=== PATIENT | female | born 1970 | race African-American/Black ===

== ENCOUNTER 2018-10-14 20:02 | Emergency (ER) | payer OTHER ==
[2018-10-14 20:29] VITALS: BP 115/58; PULSE 108; TEMP 99.3; BMI 21.1
[2018-10-14 21:08] LABS: URINE APPEARANCE CLOUDY; URINE BILIRUBIN NEGATIVE (<2.0 mg/dL); URINE COLOR LTYELLOW; URINE GLUCOSE (UA) NEGATIVE (NEGATIVE); URINE KETONE NEGATIVE (NEGATIVE); URINE LEUK ESTERASE 3+ (NEGATIVE); URINE NITRITE POSITIVE (NEGATIVE); URINE PROTEIN 2+ (NEGATIVE); URINE UROBILINOGEN NEGATIVE mg/dL (0.2-1.0)
[2018-10-14 21:18] LABS: BASO % 0.4 % (0-2.0); EOS % 0.8 % (0-4.5); HEMATOCRIT 32.3 % (32.4-45.2); HEMOGLOBIN 11.1 GM/dL (10.7-15.3); LYMPH % 9.9 % (8-40); MCH 28.7 pg (25.7-33.7); MCHC 34.3 g/dl (32.0-36.0); MEAN CELL VOLUME 83.7 fl (80-96); MEAN PLT VOLUME 6.8 fl (7.5-11.1); MONO % 5.7 % (3.8-10.2); NEUT % 83.2 % (42.8-82.8); PLATELET COUNT 314 K/MM3 (134-434); RBC 3.87 M/mm3 (3.60-5.2); RDW 14.9 % (11.6-15.6); WHITE BLOOD COUNT 13.6 K/mm3 (4.0-10.0)
[2018-10-14] MEDS ORDERED: ACETAMINOPHEN INJECTION 100 ML IVPB ONE (21:19)
--- NOTE | 2018-10-14 21:34 | PDOC ---
History of Present Illness - General Chief Complaint: Urinary Problem Stated Complaint: pain Time Seen by Provider: 10/14/18 20:34 History Source: Patient Exam Limitations: No Limitations - History of Present Illness Travel History: No Initial Comments: 10/14/18 22:12 Best Contact: PCP:Dr. Hsu Pmhx:None Pshx: : Anterior cervical discectomy fusion and plating/4 plates and 8 squamous, 2004 left hemithyroidectomy/right partial hemithyroidectomy: 2001 L4- L5 HNP/discectomy: 1996: Bilateral tubal ligation, 1986: Allergies: Penicillin/hives FH:0 Social Hx: Cigarettes/ 0 Alcohol/ 0 Drugs/0 48-year-old female presents to the ER complaining of right sided suprapubic pelvic pressure 2 days which radiates intermittently to the right flank with increased urinary frequency/urgency. Pain is described as 7/10 dull intermittent discomfort. The pain is exacerbated on some movements and alleviated minimally at rest. Patient states subjective fever/chills yesterday without nausea/vomiting, fever/diarrhea, headache, dizziness, lightheadedness, chest pain, shortness of breath, back pains, abdominal pains. Past History - Past Medical History Allergies/Adverse Reactions: Allergies Allergy/AdvReac Type Severity Reaction Status Date / Time Penicillins Allergy Verified 10/14/18 20:29 Home Medications: Ambulatory Orders Acetaminophen W/ Codeine #3 [Tylenol # 3] 1 combo PO Q6H PRN 04/25/12 Cyclobenzaprine HCl [Flexeril] 10 mg PO Q8H 04/25/12 Diazepam [Valium] 5 mg PO BID 04/25/12 Carisoprodol [Soma] 700 mg PO BID 01/21/16 Methylprednisolone [Medrol Dose [place]] 4 mg PO ASDIR #21 tablet 01/21/16 Oxycodone HCl/Acetaminophen [Percocet 5-325 mg Tablet] 1 - 2 tab PO Q6H levoFLOXacin [Levaquin -] 500 mg PO BID #14 tablet 10/14/18 COPD: No CHF: No Hypercholesterolemia: Yes Thyroid Disease: No - Surgical History Orthopedic Surgery: Yes (lower back disc surgery) - Suicide/Smoking/Psychosocial Hx Smoking Status: Yes Smoking History: Never smoked Have you smoked in the past 12 months: No Number of Cigarettes Smoked Daily: 20 Information on smoking cessation initiated: No 'Breaking Loose' booklet given: 01/21/16 Hx Alcohol Use: No Drug/Substance Use Hx: No Substance Use Type: None Review of Systems - Review of Systems Able to Perform ROS?: Yes Comments:: 10/14/18 22:16 CONSTITUTIONAL: Absent: fever, chills, diaphoresis, generalized weakness, malaise, loss of appetite HEENT: Absent: rhinorrhea, nasal congestion, throat pain, throat swelling, difficulty swallowing, mouth swelling, ear pain, eye pain, visual Changes CARDIOVASCULAR: Absent: chest pain, loss of consciousness, palpitations, irregular heart rate, peripheral edema RESPIRATORY: Absent: cough, shortness of breath, dyspnea with exertion, orthopnea, wheezing, stridor, hemoptysis GASTROINTESTINAL: Absent: abdominal pain, abdominal distension, nausea, vomiting, diarrhea, constipation, melena, hematochezia GENITOURINARY: Right flank pain, frequency, urgency Absent: dysuria, hesitancy, hematuria,genital pain MUSCULOSKELETAL: Absent: myalgia, arthralgia, joint swelling SKIN: Absent: rash, itching, pallor HEMATOLOGIC/IMMUNOLOGIC: Absent: easy bleeding, easy bruising, lymphadenopathy, frequent infections ENDOCRINE: Absent: unexplained weight gain, unexplained weight loss, heat intolerance, cold intolerance NEUROLOGIC: Absent: headache, focal weakness or paresthesias, dizziness, unsteady gait, seizure, mental status changes, bladder or bowel incontinence PSYCHIATRIC: Absent: anxiety, depression, suicidal or homicidal ideation, hallucinations. *Physical Exam - Vital Signs Last Vital Signs Temp Pulse Resp BP Pulse Ox 99.3 F 108 H 16 115/58 L 100 10/14/18 20:27 10/14/18 20:27 10/14/18 20:27 10/14/18 20:27 10/14/18 20:27 - Physical Exam Comments: 10/14/18 22:16 GENERAL: Well developed, well nourished. Awake and alert. No acute distress. HEENT: Normocephalic, atraumatic. PERRLA, EOMI. No conjunctival pallor. Sclera are non- icteric. Moist mucous membranes. Oropharynx is clear. NECK: Supple. Full ROM. No JVD. Carotid pulses 2+ and symmetric, without bruits. No thyromegaly. No lymphadenopathy. CARDIOVASCULAR: Regular rate and rhythm. No murmurs, rubs, or gallops. Distal pulses are 2+ and symmetric. PULMONARY: No evidence of respiratory distress. Lungs clear to auscultation bilaterally. No wheezing, rales or rhonchi. ABDOMINAL: Soft. Non-tender. Non-distended. No rebound or guarding. No organomegaly. Normoactive bowel sounds. MUSCULOSKELETAL +Right CVAT Normal range of motion at all joints. No bony deformities or tenderness. EXTREMITIES: No cyanosis. No clubbing. No edema. No calf tenderness. SKIN: Warm and dry. Normal capillary refill. No rashes. No jaundice. NEUROLOGICAL: Alert, awake, appropriate. Cranial nerves 2-12 intact. No deficits to light touch and temperature in face, upper extremities and lower extremities. No motor deficits in the in face, upper extremities and lower extremities. Normoreflexic in the upper and lower extremities. Normal speech. Toes are down- going bilaterally. Gait is normal without ataxia. PSYCHIATRIC: Cooperative. Good eye contact. Appropriate mood and affect. Moderate Sedation - Procedure Monitoring Vital Signs: Procedure Monitoring Vital Signs Temperature 99.3 F 10/14/18 20:27 Pulse Rate 108 H 10/14/18 20:27 Respiratory Rate 16 10/14/18 20:27 Blood Pressure 115/58 L 10/14/18 20:27 O2 Sat by Pulse Oximetry (%) 100 10/14/18 20:27 ED Treatment Course - LABORATORY CBC & Chemistry Diagram: 10/14/18 20:40 10/14/18 20:40 - ADDITIONAL ORDERS Additional order review: Laboratory Results 10/14/18 20:40 Urine Color Ltyellow Urine Appearance Cloudy Urine pH 8.0 D Ur Specific [place] 1.010 Urine Protein 2+ H Urine Glucose (UA) Negative Urine Ketones Negative Urine Blood 1+ H Urine Nitrite Positive Urine Bilirubin Negative Urine Urobilinogen Negative Ur Leukocyte Esterase 3+ H 10/14/18 20:40 RBC 3.87 MCV 83.7 MCHC 34.3 RDW 14.9 MPV 6.8 L Neutrophils % 83.2 H Lymphocytes % 9.9 D Monocytes % 5.7 Eosinophils % 0.8 Basophils % 0.4 - RADIOLOGY Radiograph Interpretation: 10/14/18 22:17 Renal US: *DC/Admit/Observation/Transfer Diagnosis at time of Disposition: UTI (urinary tract infection) Qualifiers: Urinary tract infection type: acute cystitis Hematuria presence: without hematuria Qualified Code(s): N30.00 - Acute cystitis without hematuria - Discharge Dispostion Disposition: HOME - Prescriptions Prescriptions: levoFLOXacin [Levaquin -] 500 mg PO BID #14 tablet - Referrals Referrals: Umer Hsu [Primary Care Provider] - - Patient Instructions - Post Discharge Activity
[2018-10-14 22:22] LABS: ALBUMIN 3.8 g/dl (3.4-5.0); ALK PHOS 70 U/L (45-117); ANION GAP 7 MMOL/L (8-16); BILIRUBIN,TOTAL 0.4 mg/dL (0.2-1); BLOOD UREA NITROGEN 10 mg/dL (7-18); CALCIUM 9.3 mg/dL (8.5-10.1); CHLORIDE 101 mmol/L (98-107); CO2 28 mmol/L (21-32); GLUCOSE,RANDOM 88 mg/dL (74-106); POTASSIUM 4.2 mmol/L (3.5-5.1); SGOT/AST 21 U/L (15-37); SGPT/ALT 21 U/L (13-61); SODIUM 136 mmol/L (136-145); TOT PROT 8.1 g/dl (6.4-8.2)
[2018-10-14 23:26] LABS: EPI CELLS FEW /HPF (FEW); URINE BACTERIA RARE /hpf (NONE SEEN); URINE MUCUS RARE
== END 2018-10-14 23:49 | disposition home or self-care (01) ==
LOC: JER 20:02
DX: N30.00 Acute cystitis without hematuria (principal); B96.89 Other specified bacterial agents as the cause of diseases classified elsewhere; E78.00 Pure hypercholesterolemia, unspecified
CPT/HCPCS: 36415; 76775-TC; 80053; 81003; 81015; 85025; 87086; 87186; 99282-25

== ENCOUNTER 2020-10-12 14:27 | Emergency (ER) | payer OTHER ==
[2020-10-12 14:42] VITALS: BP 123/61; PULSE 74; TEMP 98.1; BMI 21.8
[2020-10-12] MEDS ORDERED: AZITHROMYCIN 500 MG TABLET PO ONE (15:40)
[2020-10-12] MEDS ORDERED: cefTRIAXone SODIUM 1 GM VIAL ONE (16:17)
[2020-10-12] MEDS ORDERED: AZITHROMYCIN 250 MG TABLET ONE (16:22)
== END 2020-10-12 17:04 | disposition home or self-care (01) ==
LOC: JERFT 14:27 → JER 14:27 → JERFT 17:04
DX: Z20.2 Contact with and (suspected) exposure to infections with a predominantly sexual mode of transmission (principal)
CPT/HCPCS: 36415; 87491; 87591; 99284-25

== ENCOUNTER 2020-12-04 19:48 | Inpatient (IN) | payer OTHER ==
[2020-12-04] MEDS ORDERED: LIDOCAINE 5% TOPICAL PATCH TP ONE (21:59)
[2020-12-04] MEDS ORDERED: ACETAMINOPHEN 325 MG TABLET (FP) PO ONE (21:59)
[2020-12-04] MEDS ORDERED: morphine CARPU-JECT 4 MG/1 ML DISP.SYRIN IVPUSH ONE (22:00)
[2020-12-04] MEDS ORDERED: morphine CARPU-JECT 2 MG/1 ML DISP.SYRIN IM ONE (23:01)
[2020-12-04] MEDS ORDERED: ACETAMINOPHEN 325 MG TABLET (FP) ONE (23:04)
[2020-12-04] MEDS ORDERED: LIDOCAINE 5% TOPICAL PATCH ONE (23:05)
[2020-12-04] MEDS ORDERED: MORPHINE SULFATE 2 MG/ML VIAL ONE (23:08)
[2020-12-04] MEDS: LIDOCAINE PATCH REMOVAL MC SCH (23:29)
[2020-12-05 00:03] LABS: BASO % 0.6 % (0-2.0); HEMATOCRIT 35.3 % (32.4-45.2); HEMOGLOBIN 11.7 GM/dL (10.7-15.3); LYMPH % 25.9 % (8-40); MCH 29.2 pg (25.7-33.7); MCHC 33.2 g/dl (32.0-36.0); MEAN CELL VOLUME 87.8 fl (80-96); MEAN PLT VOLUME 6.1 fl (7.5-11.1); MONO % 6.2 % (3.8-10.2); NEUT % 65.3 % (42.8-82.8); PLATELET COUNT 413 K/MM3 (134-434); RBC 4.02 M/mm3 (3.60-5.2); RDW 14.9 % (11.6-15.6); WHITE BLOOD COUNT 9.6 K/mm3 (4.0-10.0)
[2020-12-05 00:46] LABS: CHLORIDE 107 mmol/L (98-107); POTASSIUM 3.8 mmol/L (3.5-5.1); SODIUM 144 mmol/L (136-145)
[2020-12-05 00:51] LABS: ANION GAP 8 MMOL/L (8-16); BLOOD UREA NITROGEN 11.8 mg/dL (7-18); CO2 29 mmol/L (21-32)
[2020-12-05 00:52] LABS: CALCIUM 9.9 mg/dL (8.5-10.1); GLUCOSE,RANDOM 96 mg/dL (74-106)
[2020-12-05 00:54] LABS: SGPT/ALT 25 U/L (13-61)
[2020-12-05 00:55] LABS: SGOT/AST 19 U/L (15-37)
[2020-12-05 00:56] LABS: BILIRUBIN,TOTAL 1.1 mg/dL (0.2-1)
[2020-12-05 00:57] LABS: ALK PHOS 96 U/L (45-117)
[2020-12-05] MEDS ORDERED: morphine CARPU-JECT 4 MG/1 ML DISP.SYRIN IVPUSH ONE (05:41)
[2020-12-05] MEDS ORDERED: ACETAMINOPHEN 325 MG TABLET (FP) PO ONE (05:41)
[2020-12-05] MEDS ORDERED: ACETAMINOPHEN 325 MG TABLET (FP) ONE (05:44)
[2020-12-05] MEDS ORDERED: morphine SULFATE 4 MG/ML VIAL ONE (05:45)
[2020-12-05] MEDS ORDERED: ZOLPIDEM TARTRATE 5 MG TABLET PO PRN (09:36)
[2020-12-05] MEDS ORDERED: ACETAMINOPHEN 500 MG TABLET (FP) PO PRN (09:41)
[2020-12-05] MEDS ORDERED: VENLAFAXINE HCL 150 MG E.R. CAPSULE PO SCH (10:00)
[2020-12-05 11:56] VITALS: BMI 23.3
[2020-12-05] MEDS: PANTOPRAZOLE 20 MG TABLET PO SCH (14:06)
[2020-12-05] MEDS: MULTIVITAMINS (DAILY MVI) TABLET (FP) PO SCH (14:06)
[2020-12-05] MEDS: VENLAFAXINE HCL 75 MG E.R. CAPSULES PO SCH (14:06)
[2020-12-05] MEDS: CHOLECALCIFEROL (VIT D3) 1,000 UNIT (25 MCG) TABLET PO SCH (14:07)
[2020-12-05] MEDS ORDERED: PT OWN MED DRAWER 7, Y5N ONE (16:19)
[2020-12-05] MEDS: BICTEGRAV/EMTRICIT/TENOFOV (BIKTARVY) 50-200-25 MG TABLET PO SCH (16:24)
[2020-12-05] MEDS: OLANZapine 2.5 MG TABLET PO SCH (16:24)
[2020-12-05] MEDS: CYCLOBENZAPRINE HCL 10 MG TABLET (FP) PO PRN (16:30)
[2020-12-05] MEDS: IBUPROFEN 600 MG TABLET (FP) PO PRN (16:31)
[2020-12-05] MEDS: ATORVASTATIN CA 10 MG TABLET (FP) PO SCH (21:21)
[2020-12-05] MEDS: LIDOCAINE PATCH REMOVAL MC SCH (21:23)
[2020-12-06] MEDS ORDERED: PT OWN MED DRAWER 7, Y5N ONE ×2 (09:42→10:30)
[2020-12-06 09:45] LABS: BASO % 0.7 % (0-2.0); EOS % 5.1 % (0-4.5); HEMATOCRIT 35.5 % (32.4-45.2); HEMOGLOBIN 11.8 GM/dL (10.7-15.3); LYMPH % 30.1 % (8-40); MCH 29.2 pg (25.7-33.7); MCHC 33.1 g/dl (32.0-36.0); MEAN CELL VOLUME 88.3 fl (80-96); MEAN PLT VOLUME 6.7 fl (7.5-11.1); MONO % 5.3 % (3.8-10.2); NEUT % 58.8 % (42.8-82.8); PLATELET COUNT 407 K/MM3 (134-434); RBC 4.02 M/mm3 (3.60-5.2); RDW 15.3 % (11.6-15.6); WHITE BLOOD COUNT 6.6 K/mm3 (4.0-10.0)
[2020-12-06 10:09] LABS: POTASSIUM 3.9 mmol/L (3.5-5.1)
[2020-12-06 10:20] LABS: CALCIUM 9.3 mg/dL (8.5-10.1)
[2020-12-06] MEDS: BICTEGRAV/EMTRICIT/TENOFOV (BIKTARVY) 50-200-25 MG TABLET PO SCH (10:20)
[2020-12-06] MEDS: VENLAFAXINE HCL 75 MG E.R. CAPSULES PO SCH (10:20)
[2020-12-06 10:21] LABS: ALBUMIN 3.5 g/dl (3.4-5.0); BLOOD UREA NITROGEN 13.3 mg/dL (7-18); MAGNESIUM 2.1 mg/dL (1.8-2.4)
[2020-12-06] MEDS: ENOXAPARIN NA (PORCINE) 40 MG/0.4 ML DISP.SYRIN SQ SCH (10:21)
[2020-12-06 10:22] LABS: PHOSPHOROUS 4.1 mg/dL (2.5-4.9)
[2020-12-06] MEDS: PANTOPRAZOLE 20 MG TABLET PO SCH (10:22)
[2020-12-06] MEDS: MULTIVITAMINS (DAILY MVI) TABLET (FP) PO SCH (10:22)
[2020-12-06 10:23] LABS: BILIRUBIN,TOTAL 0.4 mg/dL (0.2-1); TOT PROT 7.5 g/dl (6.4-8.2)
[2020-12-06] MEDS: CHOLECALCIFEROL (VIT D3) 1,000 UNIT (25 MCG) TABLET PO SCH (10:23)
[2020-12-06] MEDS: OLANZapine 2.5 MG TABLET PO SCH (10:24)
[2020-12-06] MEDS: IBUPROFEN 600 MG TABLET (FP) PO PRN (18:43)
[2020-12-06] MEDS: LIDOCAINE PATCH REMOVAL MC SCH (21:25)
[2020-12-06] MEDS: ATORVASTATIN CA 10 MG TABLET (FP) PO SCH (21:25)
[2020-12-07] MEDS ORDERED: PT OWN MED DRAWER 7, Y5N ONE (09:32)
[2020-12-07] MEDS: ENOXAPARIN NA (PORCINE) 40 MG/0.4 ML DISP.SYRIN SQ SCH (09:48)
[2020-12-07] MEDS: PANTOPRAZOLE 20 MG TABLET PO SCH (09:48)
[2020-12-07] MEDS: OLANZapine 2.5 MG TABLET PO SCH (09:48)
[2020-12-07] MEDS: BICTEGRAV/EMTRICIT/TENOFOV (BIKTARVY) 50-200-25 MG TABLET PO SCH (09:48)
[2020-12-07] MEDS: VENLAFAXINE HCL 75 MG E.R. CAPSULES PO SCH (09:48)
[2020-12-07] MEDS: CHOLECALCIFEROL (VIT D3) 1,000 UNIT (25 MCG) TABLET PO SCH (09:48)
[2020-12-07] MEDS: MULTIVITAMINS (DAILY MVI) TABLET (FP) PO SCH (09:48)
[2020-12-07] MEDS: IBUPROFEN 600 MG TABLET (FP) PO PRN ×2 (11:22→21:40)
[2020-12-07] MEDS: CYCLOBENZAPRINE HCL 10 MG TABLET (FP) PO PRN (11:23)
[2020-12-07] MEDS: LIDOCAINE PATCH REMOVAL MC SCH (21:41)
[2020-12-07] MEDS: ATORVASTATIN CA 10 MG TABLET (FP) PO SCH (21:41)
[2020-12-07] MEDS: ZOLPIDEM TARTRATE 5 MG TABLET PO PRN (21:41)
[2020-12-08] MEDS ORDERED: PT OWN MED DRAWER 7, Y5N ONE ×2 (09:30→10:57)
[2020-12-08] MEDS: VENLAFAXINE HCL 75 MG E.R. CAPSULES PO SCH (09:37)
[2020-12-08] MEDS: MULTIVITAMINS (DAILY MVI) TABLET (FP) PO SCH (09:37)
[2020-12-08] MEDS: PANTOPRAZOLE 20 MG TABLET PO SCH (09:37)
[2020-12-08] MEDS: BICTEGRAV/EMTRICIT/TENOFOV (BIKTARVY) 50-200-25 MG TABLET PO SCH (09:38)
[2020-12-08] MEDS: OLANZapine 2.5 MG TABLET PO SCH (09:38)
[2020-12-08] MEDS: CHOLECALCIFEROL (VIT D3) 1,000 UNIT (25 MCG) TABLET PO SCH (09:38)
[2020-12-08] MEDS: ENOXAPARIN NA (PORCINE) 40 MG/0.4 ML DISP.SYRIN SQ SCH (09:43)
[2020-12-08] MEDS: IBUPROFEN 600 MG TABLET (FP) PO PRN (11:19)
[2020-12-08 19:25] LABS: INR 1.14 (0.83-1.09); PROTHROMBIN TIME (PATIENT) 13.7 SEC (9.7-13.0)
[2020-12-08] MEDS: CYCLOBENZAPRINE HCL 10 MG TABLET (FP) PO PRN (21:23)
[2020-12-08] MEDS: ATORVASTATIN CA 10 MG TABLET (FP) PO SCH (21:23)
[2020-12-08] MEDS: ZOLPIDEM TARTRATE 5 MG TABLET PO PRN (21:24)
[2020-12-08] MEDS: LIDOCAINE PATCH REMOVAL MC SCH (21:24)
[2020-12-08] MEDS ORDERED: CHLORHEXIDINE GLUCONATE 4% CLEANSER FOR DECOLONIZATION TP SCH (22:00)
[2020-12-08] MEDS ORDERED: LIDOCAINE 5% TOPICAL PATCH TP ONE (22:00)
[2020-12-09] MEDS ORDERED: MIDAZOLAM HCL 2 MG/2 ML SINGLE DOSE VIAL ONE (08:06)
[2020-12-09] MEDS ORDERED: MORPHINE 5 MG/10 ML AMP - FOR COMPOUNDING USE ONLY ONE (08:06)
[2020-12-09] MEDS ORDERED: PROPOFOL 20 ML ONE (08:06)
[2020-12-09] MEDS ORDERED: fentaNYL CITRATE 250 MCG/5 ML VIAL ONE ×2 (08:07)
[2020-12-09] MEDS ORDERED: ROCURONIUM BROMIDE 50 MG/5 ML SYRINGE ONE ×3 (08:07→10:48)
[2020-12-09] MEDS ORDERED: ceFAZolin SODIUM 1 GM VIAL IVPB ONE (08:35)
[2020-12-09] MEDS ORDERED: VANCOMYCIN 1,000 MG VIAL (RESTRICTED TO ID ONLY) IVPB ONE (08:48)
[2020-12-09] MEDS ORDERED: KETOROLAC TROMETHAMINE 30 MG/1 ML VIAL ONE (08:57)
[2020-12-09] MEDS ORDERED: ONDANSETRON 4 MG/2 ML VIAL ONE (08:57)
[2020-12-09] MEDS ORDERED: VANCOMYCIN 1,000 MG VIAL (RESTRICTED TO ID ONLY) ONE (08:57)
[2020-12-09] MEDS ORDERED: ceFAZolin SODIUM 1 GM VIAL ONE ×3 (08:57→18:55)
[2020-12-09] MEDS ORDERED: DEXAMETHASONE SOD PHOSPHATE 4 MG/1 ML VIAL ONE (08:57)
[2020-12-09] MEDS ORDERED: LIDOCAINE 1%/EPI 1:100000 (20 ML MULTI DOSE VIAL) IJ ONE (09:15)
[2020-12-09] MEDS ORDERED: BUPIVACAINE HCL 100 ML ONE (09:23)
[2020-12-09] MEDS ORDERED: BACITRACIN 50,000 UNITS VIAL TP ONE (09:39)
[2020-12-09] MEDS ORDERED: GENTAMICIN SO4 80 MG/2 ML VIAL IVPB ONE (09:40)
[2020-12-09] MEDS ORDERED: THROMBIN (BOVINE) 5,000 UNIT VIAL TP ONE (09:52)
[2020-12-09] MEDS ORDERED: HYDROGEN PEROXIDE 473 ML PO ONE (09:54)
[2020-12-09] MEDS ORDERED: BUPIVACAINE HCL/PF 0.5% (5 MG/ML) 30 ML VIAL IJ ONE (09:55)
[2020-12-09] MEDS ORDERED: BUPIVACAINE LIPOSOME/PF (EXPAREL) 266 MG/20 ML VIAL NR ONE (09:56)
[2020-12-09] MEDS ORDERED: LIDOCAINE PATCH REMOVAL MC SCH (10:00)
[2020-12-09] MEDS ORDERED: BUPIVACAINE LIPOSOME/PF (EXPAREL) 266 MG/20 ML VIAL ONE (10:33)
[2020-12-09] MEDS ORDERED: NEOSTIGMINE METHYLSULFATE 0.5 MG/1 ML - 10 ML MDV ONE (11:10)
[2020-12-09] MEDS ORDERED: GLYCOPYRROLATE 0.2 MG/1 ML VIAL ONE ×2 (11:10)
[2020-12-09] MEDS ORDERED: ONDANSETRON 4 MG/2 ML VIAL IVPUSH PRN ×2 (11:50)
[2020-12-09] MEDS ORDERED: PROMETHAZINE HCL 25 MG/1 ML VIAL IVPUSH PRN (11:50)
[2020-12-09] MEDS ORDERED: diphenhydrAMINE HCL 25 MG CAPSULE (FP) PO PRN (11:50)
[2020-12-09] MEDS ORDERED: NALOXONE HCL 0.4 MG/ML VIAL IVPUSH PRN (11:52)
[2020-12-09] MEDS ORDERED: HEPARIN NA (PORCINE) 5,000 UNITS/ML 1ML VIAL SQ SCH (12:00)
[2020-12-09] MEDS ORDERED: LACTATED RINGERS SOLUTION 1,000 ML/1,000 ML INFUS.BAG IV SCH (12:00)
[2020-12-09] MEDS ORDERED: CYCLOBENZAPRINE HCL 10 MG TABLET (FP) PO PRN (12:47)
[2020-12-09] MEDS ORDERED: CEFAZOLIN 1 GM/D5W 1 GM/50 ML BAG IVPB SCH (18:00)
[2020-12-09] MEDS: ACETAMINOPHEN 325 MG TABLET (FP) PO SCH (18:45)
[2020-12-09] MEDS ORDERED: DEXTROSE 5%-WATER - 50 ML IVPB ONE (18:55)
[2020-12-09] MEDS: ATORVASTATIN CA 10 MG TABLET (FP) PO SCH (21:24)
[2020-12-09] MEDS: DOCUSATE SODIUM 100 MG CAPSULE (FP) PO SCH (21:24)
[2020-12-09] MEDS ORDERED: CHLORHEXIDINE GLUCONATE 4% CLEANSER FOR DECOLONIZATION TP SCH (22:00)
[2020-12-09] MEDS: ZOLPIDEM TARTRATE 5 MG TABLET PO PRN (22:17)
[2020-12-10] MEDS: ACETAMINOPHEN 325 MG TABLET (FP) PO SCH ×5 (00:29→23:16)
[2020-12-10] MEDS ORDERED: DEXTROSE 5%-WATER - 50 ML IVPB ONE ×2 (04:21→09:33)
[2020-12-10] MEDS ORDERED: ceFAZolin SODIUM 1 GM VIAL ONE ×2 (04:21→09:32)
[2020-12-10] MEDS: CEFAZOLIN 1 GM in DEXTROSE 5%-WATER - 1 GM/50 ML IVPB IVPB SCH ×2 (04:23→09:42)
[2020-12-10] MEDS: DOCUSATE SODIUM 100 MG CAPSULE (FP) PO SCH ×3 (06:14→21:28)
[2020-12-10 08:51] LABS: HEMATOCRIT 28.3 % (32.4-45.2); HEMOGLOBIN 9.5 GM/dL (10.7-15.3); MCH 29.5 pg (25.7-33.7); MCHC 33.5 g/dl (32.0-36.0); MEAN PLT VOLUME 7.1 fl (7.5-11.1); PLATELET COUNT 328 K/MM3 (134-434); RBC 3.22 M/mm3 (3.60-5.2); RDW 14.9 % (11.6-15.6); WHITE BLOOD COUNT 9.2 K/mm3 (4.0-10.0)
[2020-12-10] MEDS ORDERED: oxyCODONE HCL 5 MG TABLET PO PRN ×2 (09:00)
[2020-12-10 09:17] LABS: POTASSIUM 3.8 mmol/L (3.5-5.1)
[2020-12-10] MEDS ORDERED: LACTATED RINGERS SOLUTION 1,000 ML/1,000 ML INFUS.BAG IV SCH (09:18)
[2020-12-10] MEDS ORDERED: PT OWN MED DRAWER 7, Y5N ONE (09:18)
[2020-12-10] MEDS: PANTOPRAZOLE 20 MG TABLET PO SCH (09:27)
[2020-12-10] MEDS: MULTIVITAMINS (DAILY MVI) TABLET (FP) PO SCH (09:27)
[2020-12-10] MEDS: FERROUS SO4 325 MG TABLET (FP) PO SCH (09:27)
[2020-12-10] MEDS: FOLIC ACID 1 MG TABLET (FP) PO SCH (09:27)
[2020-12-10] MEDS: CHOLECALCIFEROL (VIT D3) 1,000 UNIT (25 MCG) TABLET PO SCH (09:28)
[2020-12-10] MEDS: VENLAFAXINE HCL 75 MG E.R. CAPSULES PO SCH (09:28)
[2020-12-10] MEDS: OLANZapine 2.5 MG TABLET PO SCH (09:28)
[2020-12-10] MEDS: BICTEGRAV/EMTRICIT/TENOFOV (BIKTARVY) 50-200-25 MG TABLET PO SCH (09:29)
[2020-12-10 09:38] LABS: CREATININE 0.8 mg/dL (0.55-1.3)
[2020-12-10] MEDS ORDERED: ENOXAPARIN NA (PORCINE) 40 MG/0.4 ML DISP.SYRIN SQ SCH (10:00)
[2020-12-10] MEDS: oxyCODONE HCL 10 MG SUSTAINED ACTING TABLET PO SCH ×2 (12:00→21:28)
[2020-12-10] MEDS: SENNOSIDES 8.6MG TABLET (FP) PO SCH ×2 (14:54→21:29)
[2020-12-10] MEDS: ATORVASTATIN CA 10 MG TABLET (FP) PO SCH (21:28)
[2020-12-10] MEDS: ZOLPIDEM TARTRATE 5 MG TABLET PO PRN (23:17)
[2020-12-11] MEDS: ACETAMINOPHEN 325 MG TABLET (FP) PO SCH (07:00)
[2020-12-11] MEDS: DOCUSATE SODIUM 100 MG CAPSULE (FP) PO SCH (07:01)
[2020-12-11] MEDS: oxyCODONE HCL 10 MG SUSTAINED ACTING TABLET PO SCH (10:11)
[2020-12-11] MEDS: VENLAFAXINE HCL 75 MG E.R. CAPSULES PO SCH (10:13)
[2020-12-11] MEDS: SENNOSIDES 8.6MG TABLET (FP) PO SCH (10:14)
[2020-12-11] MEDS: MULTIVITAMINS (DAILY MVI) TABLET (FP) PO SCH (10:14)
[2020-12-11] MEDS: PANTOPRAZOLE 20 MG TABLET PO SCH (10:14)
[2020-12-11] MEDS: FERROUS SO4 325 MG TABLET (FP) PO SCH (10:14)
[2020-12-11] MEDS: BICTEGRAV/EMTRICIT/TENOFOV (BIKTARVY) 50-200-25 MG TABLET PO SCH (10:15)
[2020-12-11] MEDS: FOLIC ACID 1 MG TABLET (FP) PO SCH (10:16)
[2020-12-11] MEDS: OLANZapine 2.5 MG TABLET PO SCH (10:16)
[2020-12-11] MEDS: CHOLECALCIFEROL (VIT D3) 1,000 UNIT (25 MCG) TABLET PO SCH (10:16)
[2020-12-11 13:30] VITALS: PULSE 58; TEMP 97.8
[2020-12-11 13:32] VITALS: BP 103/63
== END 2020-12-11 15:01 | disposition home health service (06) | DRG 304 ==
LOC: JER 19:48 → JERBED 12-05 05:49 → J6S 12-05 10:30 → J4W 12-09 17:27
PROVIDERS: ADMIT Internal Medicine; ATTEND Family Medicine
PROC: 0SG0071 Fusion of Lumbar Vertebral Joint with Autologous Tissue Substitute, Posterior Approach, Posterior Column, Open Approach (ICD-10-PCS; 2020-12-09)
PROC: 01NB0ZZ Release Lumbar Nerve, Open Approach (ICD-10-PCS; 2020-12-09)
PROC: 0JX70ZZ Transfer Back Subcutaneous Tissue and Fascia, Open Approach (ICD-10-PCS; 2020-12-09)
PROC: 00QT0ZZ Repair Spinal Meninges, Open Approach (ICD-10-PCS; 2020-12-09)
PROC: 0SB20ZZ Excision of Lumbar Vertebral Disc, Open Approach (ICD-10-PCS; 2020-12-09)
PROC: 00BY0ZZ Excision of Lumbar Spinal Cord, Open Approach (ICD-10-PCS; 2020-12-09)
PROC: B01BZZZ Fluoroscopy of Spinal Cord (ICD-10-PCS; 2020-12-09)
PROC: 4A11X4G Monitoring of Peripheral Nervous Electrical Activity, Intraoperative, External Approach (ICD-10-PCS; 2020-12-09)
PROC: 0SG00AJ Fusion of Lumbar Vertebral Joint with Interbody Fusion Device, Posterior Approach, Anterior Column, Open Approach (ICD-10-PCS; principal; 2020-12-09 08:00)
DX: M47.26 Other spondylosis with radiculopathy, lumbar region (principal); E78.00 Pure hypercholesterolemia, unspecified; M54.5 Low back pain; F17.210 Nicotine dependence, cigarettes, uncomplicated; K82.8 Other specified diseases of gallbladder; R70.0 Elevated erythrocyte sedimentation rate; Z21 Asymptomatic human immunodeficiency virus [HIV] infection status; N28.1 Cyst of kidney, acquired; R26.81 Unsteadiness on feet; G96.191 Perineural cyst; M48.061 Spinal stenosis, lumbar region without neurogenic claudication; G96.198 Other disorders of meninges, not elsewhere classified; G96.11 Dural tear
CPT/HCPCS: 36415; 72125-TC; 72128-TC; 72131-TC; 72158-TC; 73523-TC-FY; 73552-TC-RT-FY; 74177-TC; 76000-TC-FY; 80048; 80053; 83735; 84100; 84436; 84443; 84481; 84703; 85025; 85027; 85610; 85651; 86140; 86359; 86360; 86850; 86900; 86901; 87040; 87070; 87075; 87205; 88304-TC; 93005; 93010; 93971-TC; 94760; 97116-GP; 97162-GP; 99285-25; A9579; C9803; Q9967; U0003

== ENCOUNTER 2020-12-15 14:03 | Inpatient (IN) | payer OTHER ==
[2020-12-15 17:03] LABS: BASO % 0.6 % (0-2.0); EOS % 4.2 % (0-4.5); HEMATOCRIT 29.1 % (32.4-45.2); HEMOGLOBIN 9.9 GM/dL (10.7-15.3); LYMPH % 24.8 % (8-40); MCH 29.6 pg (25.7-33.7); MEAN CELL VOLUME 86.9 fl (80-96); MEAN PLT VOLUME 6.7 fl (7.5-11.1); MONO % 8.6 % (3.8-10.2); NEUT % 61.8 % (42.8-82.8); PLATELET COUNT 494 K/MM3 (134-434); RBC 3.35 M/mm3 (3.60-5.2); RDW 14.7 % (11.6-15.6); WHITE BLOOD COUNT 8.8 K/mm3 (4.0-10.0)
[2020-12-15 17:12] LABS: INR 1.22 (0.83-1.09); PROTHROMBIN TIME (PATIENT) 14.7 SEC (9.7-13.0)
[2020-12-15 17:15] LABS: ACTIVATED PTT 33.5 SECONDS (25.2-36.5)
[2020-12-15 17:18] LABS: POTASSIUM 3.8 mmol/L (3.5-5.1)
[2020-12-15 17:21] LABS: ALBUMIN 3.2 g/dl (3.4-5.0); BLOOD UREA NITROGEN 12.4 mg/dL (7-18)
[2020-12-15 17:24] LABS: CREATININE 0.8 mg/dL (0.55-1.3)
[2020-12-15 17:25] LABS: BILIRUBIN,TOTAL 0.3 mg/dL (0.2-1); TOT PROT 7.7 g/dl (6.4-8.2)
[2020-12-15] MEDS ORDERED: ACETAMINOPHEN 325 MG TABLET (FP) PO PRN (23:36)
[2020-12-16] MEDS ORDERED: oxyCODONE HCL 5 MG TABLET ONE (01:52)
[2020-12-16] MEDS: oxyCODONE HCL 5 MG TABLET PO PRN (02:02)
[2020-12-16] MEDS ORDERED: oxyCODONE HCL 10 MG SUSTAINED ACTING TABLET ONE (07:59)
[2020-12-16] MEDS ORDERED: FERROUS SO4 325 MG TABLET (FP) ONE (07:59)
[2020-12-16] MEDS ORDERED: ALBUTEROL SO4 HFA INHALER IH ONE (07:59)
[2020-12-16] MEDS ORDERED: PANTOPRAZOLE 20 MG TABLET PO ONE (07:59)
[2020-12-16] MEDS ORDERED: FOLIC ACID 1 MG TABLET (FP) ONE (07:59)
[2020-12-16] MEDS ORDERED: CHOLECALCIFEROL (VIT D3) 1,000 UNIT (25 MCG) TABLET ONE (07:59)
[2020-12-16] MEDS ORDERED: PATIENT'S OWN MEDICATION (NON-FORMULARY) (Bictegrav/Emtricit/Tenofov Ala 1 EACH Tablet) PO SCH (10:00)
[2020-12-16] MEDS: FOLIC ACID 1 MG TABLET (FP) PO SCH (10:48)
[2020-12-16] MEDS: VENLAFAXINE HCL 150 MG E.R. CAPSULE PO SCH (10:48)
[2020-12-16] MEDS: FERROUS SO4 325 MG TABLET (FP) PO SCH (10:48)
[2020-12-16] MEDS: oxyCODONE HCL 10 MG SUSTAINED ACTING TABLET PO SCH ×2 (10:49→21:34)
[2020-12-16] MEDS: CHOLECALCIFEROL (VIT D3) 1,000 UNIT (25 MCG) TABLET PO SCH (10:50)
[2020-12-16] MEDS: ALBUTEROL SO4 HFA INHALER IH SCH ×4 (10:50→23:40)
[2020-12-16] MEDS: PANTOPRAZOLE 20 MG TABLET PO SCH (10:50)
[2020-12-16] MEDS: OLANZapine 2.5 MG TABLET PO SCH (10:50)
[2020-12-16] MEDS: BICTEGRAV/EMTRICIT/TENOFOV (BIKTARVY) 50-200-25 MG TABLET PO SCH (13:23)
[2020-12-16 13:36] VITALS: BMI 21.1
[2020-12-16] MEDS ORDERED: CEFTRIAXONE 2 GM in DEXTROSE 5%-WATER 2 GM/100 ML BAG IVPB SCH (14:45)
[2020-12-16] MEDS ORDERED: DEXTROSE 5%-WATER 100 ML IVPB ONE (16:02)
[2020-12-16] MEDS: ENOXAPARIN NA (PORCINE) 40 MG/0.4 ML DISP.SYRIN SQ SCH (17:57)
[2020-12-16] MEDS: VANCOMYCIN 1 GRAM (PRE-DOCKED) 1,000 MG/250 ML BAG IVPB SCH (17:58)
[2020-12-16] MEDS: SENNOSIDES 8.6MG TABLET (FP) PO SCH (21:34)
[2020-12-16] MEDS: ATORVASTATIN CA 10 MG TABLET (FP) PO SCH (21:34)
[2020-12-16] MEDS: DOCUSATE SODIUM 100 MG CAPSULE (FP) PO SCH (21:34)
[2020-12-16] MEDS: ZOLPIDEM TARTRATE 5 MG TABLET PO PRN (23:40)
[2020-12-17] MEDS: VANCOMYCIN 1 GRAM (PRE-DOCKED) 1,000 MG/250 ML BAG IVPB SCH ×2 (05:20→16:01)
[2020-12-17 09:20] LABS: BASO % 0.8 % (0-2.0); EOS % 4.4 % (0-4.5); HEMATOCRIT 28.1 % (32.4-45.2); HEMOGLOBIN 9.7 GM/dL (10.7-15.3); LYMPH % 23.2 % (8-40); MCH 29.9 pg (25.7-33.7); MCHC 34.5 g/dl (32.0-36.0); MEAN CELL VOLUME 86.7 fl (80-96); MEAN PLT VOLUME 6.6 fl (7.5-11.1); MONO % 8.5 % (3.8-10.2); NEUT % 63.1 % (42.8-82.8); PLATELET COUNT 551 K/MM3 (134-434); RBC 3.24 M/mm3 (3.60-5.2); RDW 14.8 % (11.6-15.6); WHITE BLOOD COUNT 9.5 K/mm3 (4.0-10.0)
[2020-12-17 09:24] LABS: POTASSIUM 4.1 mmol/L (3.5-5.1)
[2020-12-17] MEDS ORDERED: CEFEPIME HCL 1 GM VIAL (RESTRICTED TO ID) ONE ×2 (09:24→17:20)
[2020-12-17] MEDS ORDERED: DEXTROSE 5%-WATER 100 ML IVPB ONE ×2 (09:25→17:21)
[2020-12-17 09:27] LABS: BLOOD UREA NITROGEN 11.1 mg/dL (7-18); CALCIUM 9.8 mg/dL (8.5-10.1)
[2020-12-17] MEDS: BICTEGRAV/EMTRICIT/TENOFOV (BIKTARVY) 50-200-25 MG TABLET PO SCH (09:29)
[2020-12-17 09:30] LABS: CREATININE 0.8 mg/dL (0.55-1.3)
[2020-12-17] MEDS: CHOLECALCIFEROL (VIT D3) 1,000 UNIT (25 MCG) TABLET PO SCH (09:30)
[2020-12-17] MEDS: oxyCODONE HCL 10 MG SUSTAINED ACTING TABLET PO SCH ×2 (09:30→22:13)
[2020-12-17] MEDS: ENOXAPARIN NA (PORCINE) 40 MG/0.4 ML DISP.SYRIN SQ SCH (09:30)
[2020-12-17] MEDS: VENLAFAXINE HCL 150 MG E.R. CAPSULE PO SCH (09:30)
[2020-12-17] MEDS: PANTOPRAZOLE 20 MG TABLET PO SCH (09:30)
[2020-12-17] MEDS: FOLIC ACID 1 MG TABLET (FP) PO SCH (09:30)
[2020-12-17 09:32] LABS: TOT PROT 7.6 g/dl (6.4-8.2)
[2020-12-17] MEDS: CEFEPIME 1 GM in DEXTROSE 5%-WATER 1 GM/100 ML BAG IVPB SCH ×2 (09:32→17:22)
[2020-12-17] MEDS: ALBUTEROL SO4 HFA INHALER IH SCH ×4 (09:32→22:15)
[2020-12-17] MEDS: FERROUS SO4 325 MG TABLET (FP) PO SCH (09:32)
[2020-12-17] MEDS: OLANZapine 2.5 MG TABLET PO SCH (09:33)
[2020-12-17 09:34] LABS: BILIRUBIN,TOTAL 0.8 mg/dL (0.2-1)
[2020-12-17] MEDS: GABAPENTIN 100 MG CAPSULE PO SCH ×2 (13:11→22:13)
[2020-12-17] MEDS: oxyCODONE HCL 5 MG TABLET PO PRN (17:21)
[2020-12-17] MEDS: DOCUSATE SODIUM 100 MG CAPSULE (FP) PO SCH (22:12)
[2020-12-17] MEDS: ATORVASTATIN CA 10 MG TABLET (FP) PO SCH (22:13)
[2020-12-17] MEDS: SENNOSIDES 8.6MG TABLET (FP) PO SCH (22:14)
[2020-12-17] MEDS: ZOLPIDEM TARTRATE 5 MG TABLET PO PRN (22:19)
[2020-12-18] MEDS ORDERED: DEXTROSE 5%-WATER 100 ML IVPB ONE ×2 (01:17→17:38)
[2020-12-18] MEDS ORDERED: CEFEPIME HCL 1 GM VIAL (RESTRICTED TO ID) ONE ×2 (01:17→17:38)
[2020-12-18] MEDS: CEFEPIME 1 GM in DEXTROSE 5%-WATER 1 GM/100 ML BAG IVPB SCH ×3 (02:53→17:41)
[2020-12-18] MEDS: VANCOMYCIN 1 GRAM (PRE-DOCKED) 1,000 MG/250 ML BAG IVPB SCH ×2 (04:51→15:50)
[2020-12-18] MEDS: GABAPENTIN 100 MG CAPSULE PO SCH ×3 (06:14→21:48)
[2020-12-18] MEDS ORDERED: LIDOCAINE 1%/EPI 1:100000 (50 ML MULTI DOSE VIAL) ONE (07:02)
[2020-12-18] MEDS ORDERED: THROMBIN (BOVINE) 5,000 UNIT VIAL TP ONE ×2 (07:02→09:44)
[2020-12-18] MEDS ORDERED: BUPIVACAINE HCL 100 ML ONE (07:02)
[2020-12-18] MEDS ORDERED: BUPIVACAINE LIPOSOME/PF (EXPAREL) 266 MG/20 ML VIAL ONE (07:02)
[2020-12-18] MEDS ORDERED: VANCOMYCIN 1,000 MG VIAL (RESTRICTED TO ID ONLY) ONE ×2 (07:02→08:40)
[2020-12-18] MEDS ORDERED: GENTAMICIN SO4 80 MG/2 ML VIAL ONE (07:03)
[2020-12-18] MEDS ORDERED: fentaNYL CITRATE 250 MCG/5 ML VIAL ONE (08:10)
[2020-12-18] MEDS ORDERED: ROCURONIUM BROMIDE 50 MG/5 ML SYRINGE ONE (08:11)
[2020-12-18] MEDS ORDERED: PROPOFOL 20 ML ONE (08:11)
[2020-12-18] MEDS ORDERED: MIDAZOLAM HCL 2 MG/2 ML SINGLE DOSE VIAL ONE (08:13)
[2020-12-18] MEDS ORDERED: BACITRACIN 15 GM TUBE TOPICAL OINTMENT ONE (08:31)
[2020-12-18] MEDS ORDERED: VANCOMYCIN 1,000 MG VIAL (RESTRICTED TO ID ONLY) IVPB ONE (08:35)
[2020-12-18] MEDS ORDERED: ceFAZolin SODIUM 1 GM VIAL IVPB ONE (08:35)
[2020-12-18] MEDS ORDERED: KETOROLAC TROMETHAMINE 30 MG/1 ML VIAL ONE (08:59)
[2020-12-18] MEDS ORDERED: NEOSTIGMINE METHYLSULFATE 0.5 MG/1 ML - 10 ML MDV ONE (09:03)
[2020-12-18] MEDS ORDERED: BACITRACIN 50,000 UNITS VIAL TP ONE (09:45)
[2020-12-18] MEDS ORDERED: GENTAMICIN SO4 80 MG/2 ML VIAL IVPB ONE (09:46)
[2020-12-18] MEDS ORDERED: ONDANSETRON 4 MG/2 ML VIAL IVPUSH PRN ×2 (10:22→10:57)
[2020-12-18] MEDS ORDERED: PROMETHAZINE HCL 25 MG/1 ML VIAL IVPUSH PRN (10:22)
[2020-12-18] MEDS ORDERED: LACTATED RINGERS SOLUTION 1,000 ML IV SCH (10:30)
[2020-12-18] MEDS ORDERED: PROMETHAZINE HCL 25 MG/1 ML VIAL IVPB PRN (10:57)
[2020-12-18] MEDS ORDERED: ZOLPIDEM TARTRATE 5 MG TABLET PO PRN (10:57)
[2020-12-18] MEDS ORDERED: ACETAMINOPHEN 325 MG TABLET (FP) PO PRN (10:57)
[2020-12-18] MEDS: FERROUS SO4 325 MG TABLET (FP) PO SCH (12:11)
[2020-12-18] MEDS: VENLAFAXINE HCL 150 MG E.R. CAPSULE PO SCH (12:11)
[2020-12-18] MEDS: BICTEGRAV/EMTRICIT/TENOFOV (BIKTARVY) 50-200-25 MG TABLET PO SCH (12:11)
[2020-12-18] MEDS: FOLIC ACID 1 MG TABLET (FP) PO SCH (12:12)
[2020-12-18] MEDS: oxyCODONE HCL 10 MG SUSTAINED ACTING TABLET PO SCH ×2 (12:12→21:48)
[2020-12-18] MEDS: ALBUTEROL SO4 HFA INHALER IH SCH ×4 (12:12→21:53)
[2020-12-18] MEDS: PANTOPRAZOLE 20 MG TABLET PO SCH (12:12)
[2020-12-18] MEDS: OLANZapine 2.5 MG TABLET PO SCH (12:13)
[2020-12-18] MEDS: CHOLECALCIFEROL (VIT D3) 1,000 UNIT (25 MCG) TABLET PO SCH (12:13)
[2020-12-18] MEDS: oxyCODONE HCL 5 MG TABLET PO PRN (14:32)
[2020-12-18] MEDS ORDERED: MORPHINE SULFATE 2 MG/ML VIAL IVPUSH ONE (17:45)
[2020-12-18] MEDS ORDERED: ATORVASTATIN CA 10 MG TABLET (FP) PO SCH (22:00)
[2020-12-18] MEDS ORDERED: DOCUSATE SODIUM 100 MG CAPSULE (FP) PO SCH (22:00)
[2020-12-18] MEDS ORDERED: SENNOSIDES 8.6MG TABLET (FP) PO SCH (22:00)
[2020-12-19] MEDS ORDERED: DEXTROSE 5%-WATER 100 ML IVPB ONE ×2 (01:03→09:14)
[2020-12-19] MEDS ORDERED: CEFEPIME HCL 1 GM VIAL (RESTRICTED TO ID) ONE ×2 (01:03→09:14)
[2020-12-19] MEDS: CEFEPIME 1 GM in DEXTROSE 5%-WATER 1 GM/100 ML BAG IVPB SCH ×2 (01:07→09:27)
[2020-12-19] MEDS: oxyCODONE HCL 5 MG TABLET PO PRN ×2 (01:08→06:17)
[2020-12-19] MEDS: VANCOMYCIN 1 GRAM (PRE-DOCKED) 1,000 MG/250 ML BAG IVPB SCH (04:16)
[2020-12-19] MEDS: GABAPENTIN 100 MG CAPSULE PO SCH ×2 (06:18→14:40)
[2020-12-19] MEDS ORDERED: PT OWN MED DRAWER 7, Y5N ONE (09:14)
[2020-12-19] MEDS: oxyCODONE HCL 10 MG SUSTAINED ACTING TABLET PO SCH (09:29)
[2020-12-19] MEDS ORDERED: CHOLECALCIFEROL (VIT D3) 1,000 UNIT (25 MCG) TABLET PO SCH (10:00)
[2020-12-19] MEDS ORDERED: ENOXAPARIN NA (PORCINE) 40 MG/0.4 ML DISP.SYRIN SQ SCH (10:00)
[2020-12-19] MEDS ORDERED: FERROUS SO4 325 MG TABLET (FP) PO SCH (10:00)
[2020-12-19] MEDS ORDERED: PANTOPRAZOLE 20 MG TABLET PO SCH (10:00)
[2020-12-19] MEDS ORDERED: BICTEGRAV/EMTRICIT/TENOFOV (BIKTARVY) 50-200-25 MG TABLET PO SCH (10:00)
[2020-12-19] MEDS ORDERED: VENLAFAXINE HCL 150 MG E.R. CAPSULE PO SCH (10:00)
[2020-12-19] MEDS ORDERED: OLANZapine 2.5 MG TABLET PO SCH (10:00)
[2020-12-19] MEDS ORDERED: FOLIC ACID 1 MG TABLET (FP) PO SCH (10:00)
[2020-12-19] MEDS: ALBUTEROL SO4 HFA INHALER IH SCH ×2 (10:41→14:41)
[2020-12-19] MEDS ORDERED: LACTOBACILLUS ACIDOPHILUS 1 TABLET PO SCH (14:15)
[2020-12-19 14:37] VITALS: BP 108/90; PULSE 70; TEMP 98.2
== END 2020-12-19 18:29 | disposition home or self-care (01) | DRG 813 ==
LOC: JER 14:03 → JERBED 21:22 → J6S 12-16 11:10
PROVIDERS: ADMIT Internal Medicine; ATTEND Family Medicine
PROC: 0JB70ZZ Excision of Back Subcutaneous Tissue and Fascia, Open Approach (ICD-10-PCS; 2020-12-18)
PROC: 3E10X8Z Irrigation of Skin and Mucous Membranes using Irrigating Substance (ICD-10-PCS; principal; 2020-12-18 08:00)
PROC: 0JJT0ZZ Inspection of Trunk Subcutaneous Tissue and Fascia, Open Approach (ICD-10-PCS; 2020-12-18 08:00)
DX: T81.31XA Disruption of external operation (surgical) wound, not elsewhere classified, initial encounter (principal); Z21 Asymptomatic human immunodeficiency virus [HIV] infection status; M54.41 Lumbago with sciatica, right side; K21.9 Gastro-esophageal reflux disease without esophagitis; E78.5 Hyperlipidemia, unspecified; J45.909 Unspecified asthma, uncomplicated; F32.9 Major depressive disorder, single episode, unspecified; F10.10 Alcohol abuse, uncomplicated; M47.896 Other spondylosis, lumbar region; Y83.8 Other surgical procedures as the cause of abnormal reaction of the patient, or of later complication, without mention of misadventure at the time of the procedure
CPT/HCPCS: 36415; 72128-TC; 72131-TC; 80053; 82728; 83540; 83550; 85025; 85610; 85651; 85730; 86140; 86850; 86900; 86901; 87040; 87070; 87075; 87205; 88304-TC; 93005; 93010; 94760; 99285-25; C9803; G0480; U0003

== ENCOUNTER 2020-12-23 16:20 | Observation (INO) | payer OTHER ==
[2020-12-23 18:30] LABS: BASO % 0.9 % (0-2.0); EOS % 4.5 % (0-4.5); HEMATOCRIT 28.9 % (32.4-45.2); HEMOGLOBIN 9.6 GM/dL (10.7-15.3); LYMPH % 23.8 % (8-40); MCHC 33.2 g/dl (32.0-36.0); MEAN CELL VOLUME 87.4 fl (80-96); MEAN PLT VOLUME 6.4 fl (7.5-11.1); MONO % 5.6 % (3.8-10.2); NEUT % 65.2 % (42.8-82.8); PLATELET COUNT 712 K/MM3 (134-434); RBC 3.31 M/mm3 (3.60-5.2); RDW 14.6 % (11.6-15.6); WHITE BLOOD COUNT 9.3 K/mm3 (4.0-10.0)
[2020-12-23 18:33] LABS: PH,URINE 7.5 (5.0-8.0); URINE APPEARANCE CLOUDY; URINE BILIRUBIN NEGATIVE (NEGATIVE); URINE COLOR YELLOW; URINE GLUCOSE (UA) NEGATIVE (NEGATIVE); URINE KETONE NEGATIVE (NEGATIVE); URINE LEUK ESTERASE NEGATIVE (NEGATIVE); URINE NITRITE NEGATIVE (NEGATIVE); URINE PROTEIN NEGATIVE (NEGATIVE); URINE UROBILINOGEN 0.2 mg/dL (0.2-1.0)
[2020-12-23 19:03] LABS: CHLORIDE 101 mmol/L (98-107); POTASSIUM 4.4 mmol/L (3.5-5.1); SODIUM 139 mmol/L (136-145)
[2020-12-23] MEDS ORDERED: CEFEPIME HCL/D5W 1 GM/50 ML BAG IVPB ONE (19:03)
[2020-12-23 19:05] LABS: CALCIUM 10.3 mg/dL (8.5-10.1)
[2020-12-23 19:06] LABS: ALBUMIN 3.3 g/dl (3.4-5.0); ANION GAP 5 MMOL/L (8-16); BLOOD UREA NITROGEN 12.4 mg/dL (7-18); CO2 33 mmol/L (21-32); GLUCOSE,RANDOM 86 mg/dL (74-106)
[2020-12-23 19:09] LABS: CREATININE 0.9 mg/dL (0.55-1.3); SGOT/AST 22 U/L (15-37); SGPT/ALT 28 U/L (13-61)
[2020-12-23 19:11] LABS: ALK PHOS 101 U/L (45-117); BILIRUBIN,TOTAL < 0.1 mg/dL (0.2-1)
[2020-12-23] MEDS ORDERED: CEFEPIME 1 GM/100 ML BAG IVPB ONE (20:25)
[2020-12-24] MEDS ORDERED: ACETAMINOPHEN 1000 MG/100 ML VIAL (NON FORMULARY) IVPB PRN (00:24)
[2020-12-24] MEDS: MORPHINE SULFATE 2 MG/ML VIAL IVPUSH PRN ×2 (01:57→21:30)
[2020-12-24 03:32] VITALS: BMI 21.7
[2020-12-24 09:16] LABS: BASO % 0.9 % (0-2.0); EOS % 5.2 % (0-4.5); HEMATOCRIT 26.9 % (32.4-45.2); LYMPH % 27.1 % (8-40); MCH 29.1 pg (25.7-33.7); MCHC 33.3 g/dl (32.0-36.0); MEAN CELL VOLUME 87.4 fl (80-96); MEAN PLT VOLUME 6.2 fl (7.5-11.1); MONO % 5.8 % (3.8-10.2); PLATELET COUNT 702 K/MM3 (134-434); RBC 3.08 M/mm3 (3.60-5.2); RDW 14.5 % (11.6-15.6); WHITE BLOOD COUNT 8.1 K/mm3 (4.0-10.0)
[2020-12-24] MEDS ORDERED: ZOLPIDEM TARTRATE 5 MG TABLET PO PRN (09:23)
[2020-12-24 09:30] LABS: POTASSIUM 4.3 mmol/L (3.5-5.1)
[2020-12-24] MEDS ORDERED: CEFEPIME HCL/D5W 1 GM/50 ML BAG IVPB SCH (10:00)
[2020-12-24] MEDS ORDERED: PNEUMOC 13-VAL CONJ-DIP CRM/PF 0.5 ML DISP.SYRIN IM ONE (10:00)
[2020-12-24] MEDS ORDERED: FLU VACCINE (FLULAVAL) PF 60 MCG/0.5 ML SYRINGE 2020-2021 IM ONE (10:00)
[2020-12-24 10:06] LABS: ALBUMIN 3.1 g/dl (3.4-5.0); BLOOD UREA NITROGEN 10.9 mg/dL (7-18)
[2020-12-24 10:08] LABS: CREATININE 0.9 mg/dL (0.55-1.3)
[2020-12-24 10:10] LABS: BILIRUBIN,TOTAL 0.1 mg/dL (0.2-1); TOT PROT 7.4 g/dl (6.4-8.2)
[2020-12-24] MEDS ORDERED: CLINDAMYCIN 600MG PREMIX IVPB 600 MG/50 ML BAG IVPB SCH (10:30)
[2020-12-24] MEDS: PANTOPRAZOLE 20 MG TABLET PO SCH (11:01)
[2020-12-24] MEDS: QUEtiapine FUMARATE 25 MG TABLET PO SCH (11:02)
[2020-12-24] MEDS: VENLAFAXINE HCL 75 MG E.R. CAPSULES PO SCH (11:02)
[2020-12-24] MEDS: CHOLECALCIFEROL (VIT D3) 1,000 UNIT (25 MCG) TABLET PO SCH (11:02)
[2020-12-24] MEDS: SODIUM CHLORIDE 1,000 ML IV SCH (11:02)
[2020-12-24] MEDS: FOLIC ACID 1 MG TABLET (FP) PO SCH (11:02)
[2020-12-24] MEDS: FERROUS SO4 325 MG TABLET (FP) PO SCH (11:02)
[2020-12-24] MEDS: OLANZapine 2.5 MG TABLET PO SCH (11:03)
[2020-12-24] MEDS: BICTEGRAV/EMTRICIT/TENOFOV (BIKTARVY) 50-200-25 MG TABLET PO SCH (11:41)
[2020-12-24] MEDS: ALBUTEROL SO4 HFA INHALER IH SCH ×3 (11:41→21:32)
[2020-12-24] MEDS: HEPARIN NA (PORCINE) 5,000 UNITS/ML 1ML VIAL SQ SCH (21:30)
[2020-12-24] MEDS ORDERED: ATORVASTATIN CA 10 MG TABLET (FP) PO SCH (22:00)
[2020-12-24] MEDS ORDERED: DOCUSATE SODIUM 100 MG CAPSULE (FP) PO SCH (22:00)
[2020-12-24] MEDS ORDERED: SENNOSIDES 8.6MG TABLET (FP) PO SCH (22:00)
[2020-12-25 05:52] VITALS: BP 103/66; PULSE 71; TEMP 98.8
[2020-12-25 08:32] LABS: HEMATOCRIT 26.4 % (32.4-45.2); HEMOGLOBIN 8.8 GM/dL (10.7-15.3); MCH 29.1 pg (25.7-33.7); MCHC 33.3 g/dl (32.0-36.0); MEAN CELL VOLUME 87.5 fl (80-96); PLATELET COUNT 676 K/MM3 (134-434); RBC 3.01 M/mm3 (3.60-5.2); RDW 14.5 % (11.6-15.6)
[2020-12-25 08:48] LABS: POTASSIUM 4.6 mmol/L (3.5-5.1)
[2020-12-25 08:53] LABS: CALCIUM 9.7 mg/dL (8.5-10.1)
[2020-12-25 08:54] LABS: BLOOD UREA NITROGEN 12.7 mg/dL (7-18); MAGNESIUM 2.3 mg/dL (1.8-2.4)
[2020-12-25 08:57] LABS: CREATININE 0.8 mg/dL (0.55-1.3)
[2020-12-25 09:10] LABS: IRON SERUM 46 ug/dL (50-175); TOTAL IRON BINDING CAPACITY 280 ug/dL (250-450)
[2020-12-25] MEDS: MORPHINE SULFATE 2 MG/ML VIAL IVPUSH PRN (09:16)
[2020-12-25] MEDS: FOLIC ACID 1 MG TABLET (FP) PO SCH (09:18)
[2020-12-25] MEDS: PANTOPRAZOLE 20 MG TABLET PO SCH (09:18)
[2020-12-25] MEDS: FERROUS SO4 325 MG TABLET (FP) PO SCH (09:18)
[2020-12-25] MEDS: CHOLECALCIFEROL (VIT D3) 1,000 UNIT (25 MCG) TABLET PO SCH (09:18)
[2020-12-25] MEDS: ALBUTEROL SO4 HFA INHALER IH SCH (09:18)
[2020-12-25] MEDS: HEPARIN NA (PORCINE) 5,000 UNITS/ML 1ML VIAL SQ SCH (09:18)
[2020-12-25] MEDS: VENLAFAXINE HCL 75 MG E.R. CAPSULES PO SCH (09:18)
[2020-12-25] MEDS: QUEtiapine FUMARATE 25 MG TABLET PO SCH (09:23)
[2020-12-25] MEDS: OLANZapine 2.5 MG TABLET PO SCH (10:28)
[2020-12-25] MEDS: SODIUM CHLORIDE 1,000 ML IV SCH (10:28)
[2020-12-25] MEDS: BICTEGRAV/EMTRICIT/TENOFOV (BIKTARVY) 50-200-25 MG TABLET PO SCH (10:28)
== END 2020-12-25 14:19 | disposition home health service (06) ==
LOC: JER 16:20 → UNDOADMOB 20:41 → INTOOBSV 20:41 → JERBED 20:41 → J6S 12-24 00:55 → JERBED 12-24 00:55 → J6S 12-24 15:14 → UNDODISOB 12-25 14:19
PROVIDERS: ADMIT Internal Medicine; ATTEND Family Medicine
DX: T81.49XA Infection following a procedure, other surgical site, initial encounter (principal); L03.90 Cellulitis, unspecified; Z21 Asymptomatic human immunodeficiency virus [HIV] infection status; Z98.890 Other specified postprocedural states; F10.10 Alcohol abuse, uncomplicated; D64.9 Anemia, unspecified; J45.909 Unspecified asthma, uncomplicated; K21.9 Gastro-esophageal reflux disease without esophagitis; E78.00 Pure hypercholesterolemia, unspecified; N20.0 Calculus of kidney; E07.9 Disorder of thyroid, unspecified; Z87.440 Personal history of urinary (tract) infections; M54.5 Low back pain; Z87.891 Personal history of nicotine dependence
CPT/HCPCS: 36415; 80048; 80053; 81003; 83540; 83550; 83735; 85025; 85027; 87040; 87070; 87205; 90670; 99285-25; C9803; G0378; J1644; U0003

== ENCOUNTER 2021-04-10 23:02 | Inpatient (IN) | payer OTHER ==
[2021-04-10] MEDS ORDERED: ACETAMINOPHEN 1000 MG/100 ML VIAL (NON FORMULARY) IVPB ONE (23:57)
[2021-04-10] MEDS ORDERED: LACTATED RINGERS SOLUTION 1000 ML INFUS.BAG IV ONE (23:57)
[2021-04-10] MEDS ORDERED: ONDANSETRON 4 MG/2 ML VIAL IVPUSH ONE (23:57)
[2021-04-10] MEDS ORDERED: FAMOTIDINE 20 MG/50 ML IVPB 20 MG/50 ML MG IVPB ONE (23:58)
[2021-04-11] MEDS ORDERED: ONDANSETRON 4 MG/2 ML VIAL ONE ×2 (00:32→06:07)
[2021-04-11] MEDS ORDERED: FAMOTIDINE 20 MG/50 ML IVPB 20 MG/50 ML MG IVPB ONE (00:32)
[2021-04-11] MEDS ORDERED: ACETAMINOPHEN INJECTION 100 ML IVPB ONE (00:32)
[2021-04-11 02:30] LABS: BASO % 0.2 % (0-2.0); EOS % 0.1 % (0-4.5); HEMATOCRIT 32.2 % (32.4-45.2); HEMOGLOBIN 10.8 GM/dL (10.7-15.3); LACTIC ACID 2.3 mmol/L (0.4-2.0); LYMPH % 12.1 % (8-40); MCH 28.4 pg (25.7-33.7); MCHC 33.4 g/dl (32.0-36.0); MEAN CELL VOLUME 84.9 fl (80-96); MEAN PLT VOLUME 7.1 fl (7.5-11.1); MONO % 4.3 % (3.8-10.2); NEUT % 83.3 % (42.8-82.8); PLATELET COUNT 349 10^3/uL (134-434); RBC 3.79 M/mm3 (3.60-5.2); RDW 15.7 % (11.6-15.6); WHITE BLOOD COUNT 24.3 K/mm3 (4.0-10.0)
[2021-04-11 02:45] LABS: EPI CELLS 6 /uL (0-25.1); HYALINE CASTS 0 /uL (0-3.1); PH,URINE >= 9.0 (5.0-8.0); URINE APPEARANCE CLEAR; URINE BACTERIA 1190 /uL (0-1359); URINE BILIRUBIN NEGATIVE (NEGATIVE); URINE COLOR YELLOW; URINE GLUCOSE (UA) NEGATIVE (NEGATIVE); URINE KETONE NEGATIVE (NEGATIVE); URINE LEUK ESTERASE TRACE (NEGATIVE); URINE NITRITE NEGATIVE (NEGATIVE); URINE PROTEIN NEGATIVE (NEGATIVE); URINE RBC 4 /uL (0-23.9); URINE UROBILINOGEN 0.2 mg/dL (0.2-1.0); URINE WBC 43 /uL (0-25.8)
[2021-04-11 02:53] LABS: CALCIUM 9.1 mg/dL (8.5-10.1)
[2021-04-11 02:54] LABS: ALBUMIN 3.7 g/dl (3.4-5.0); BLOOD UREA NITROGEN 11.6 mg/dL (7-18)
[2021-04-11 02:58] LABS: BILIRUBIN,TOTAL 0.4 mg/dL (0.2-1); TOT PROT 7.8 g/dl (6.4-8.2)
[2021-04-11 02:59] LABS: CREATININE 0.9 mg/dL (0.55-1.3)
[2021-04-11] MEDS ORDERED: ONDANSETRON 4 MG/2 ML VIAL IVPUSH ONE (06:04)
[2021-04-11] MEDS ORDERED: morphine CARPU-JECT 2 MG/1 ML DISP.SYRIN IVPUSH ONE (06:32)
[2021-04-11] MEDS ORDERED: MORPHINE SULFATE 2 MG/ML VIAL ONE (06:33)
[2021-04-11] MEDS ORDERED: MEROPENEM 1 GM in DEXTROSE 5%-WATER 100 ML IVPB ONE (08:00)
[2021-04-11] MEDS ORDERED: MEROPENEM 1 GM VIAL (RESTRICTED TO ID) IVPB ONE (08:28)
[2021-04-11 11:25] VITALS: BMI 23.3
[2021-04-11] MEDS ORDERED: ACETAMINOPHEN 1000 MG/100 ML VIAL (NON FORMULARY) IVPB PRN (11:35)
[2021-04-11] MEDS ORDERED: ONDANSETRON 4 MG/2 ML VIAL IVPB PRN (11:35)
[2021-04-11] MEDS: MORPHINE SULFATE 2 MG/ML VIAL IVPUSH PRN ×2 (12:11→20:46)
[2021-04-11] MEDS: PANTOPRAZOLE SODIUM 40 MG VIAL IVPUSH SCH (12:13)
[2021-04-11] MEDS: LIDOCAINE 5% TOPICAL PATCH TP SCH (12:15)
[2021-04-11] MEDS: DEXTROSE 5%-NORMAL SALINE 1,000 ML IV SCH (12:16)
[2021-04-11] MEDS ORDERED: DEXTROSE 5%-WATER 100 ML IVPB ONE (17:54)
[2021-04-11] MEDS: CEFTRIAXONE 2 GM in DEXTROSE 5%-WATER 100 ML IVPB SCH (17:58)
[2021-04-11] MEDS: LIDOCAINE PATCH REMOVAL MC SCH (21:06)
[2021-04-12] MEDS: DEXTROSE 5%-NORMAL SALINE 1,000 ML IV SCH ×2 (01:04→17:20)
[2021-04-12] MEDS: MORPHINE SULFATE 2 MG/ML VIAL IVPUSH PRN ×2 (06:02→19:40)
[2021-04-12 08:28] LABS: HEMATOCRIT 32.5 % (32.4-45.2); HEMOGLOBIN 10.5 GM/dL (10.7-15.3); MCH 28.1 pg (25.7-33.7); MCHC 32.3 g/dl (32.0-36.0); MEAN CELL VOLUME 86.8 fl (80-96); MEAN PLT VOLUME 6.9 fl (7.5-11.1); PLATELET COUNT 323 10^3/uL (134-434); RBC 3.75 M/mm3 (3.60-5.2); RDW 15.4 % (11.6-15.6); WHITE BLOOD COUNT 12.4 K/mm3 (4.0-10.0)
[2021-04-12 08:52] LABS: CALCIUM 8.4 mg/dL (8.5-10.1)
[2021-04-12 08:53] LABS: BLOOD UREA NITROGEN 8.5 mg/dL (7-18); MAGNESIUM 2.1 mg/dL (1.8-2.4)
[2021-04-12 08:56] LABS: CREATININE 0.7 mg/dL (0.55-1.3)
[2021-04-12 08:57] LABS: BILIRUBIN,TOTAL 0.5 mg/dL (0.2-1)
[2021-04-12 08:58] LABS: TOT PROT 6.6 g/dl (6.4-8.2)
[2021-04-12] MEDS ORDERED: DEXTROSE 5%-WATER 100 ML IVPB ONE (09:07)
[2021-04-12] MEDS: PANTOPRAZOLE SODIUM 40 MG VIAL IVPUSH SCH (09:17)
[2021-04-12] MEDS: CEFTRIAXONE 2 GM in DEXTROSE 5%-WATER 100 ML IVPB SCH (09:18)
[2021-04-12] MEDS: LIDOCAINE 5% TOPICAL PATCH TP SCH (09:18)
[2021-04-12] MEDS ORDERED: KCL 10 MEQ IVPB 10 MEQ/100 ML INFUS.BAG IVPB SCH (11:30)
[2021-04-12] MEDS: LIDOCAINE PATCH REMOVAL MC SCH (21:16)
[2021-04-13] MEDS: DEXTROSE 5%-NORMAL SALINE 1,000 ML IV SCH ×3 (05:11→17:38)
[2021-04-13 07:45] LABS: CALCIUM 8.8 mg/dL (8.5-10.1)
[2021-04-13 07:46] LABS: MAGNESIUM 2.2 mg/dL (1.8-2.4)
[2021-04-13 07:47] LABS: HEMATOCRIT 28.9 % (32.4-45.2); HEMOGLOBIN 9.6 GM/dL (10.7-15.3); MCH 28.7 pg (25.7-33.7); MCHC 33.4 g/dl (32.0-36.0); MEAN CELL VOLUME 85.9 fl (80-96); MEAN PLT VOLUME 6.5 fl (7.5-11.1); PLATELET COUNT 323 10^3/uL (134-434); RBC 3.36 M/mm3 (3.60-5.2); RDW 15.1 % (11.6-15.6); WHITE BLOOD COUNT 9.3 K/mm3 (4.0-10.0)
[2021-04-13 07:49] LABS: CREATININE 0.7 mg/dL (0.55-1.3)
[2021-04-13] MEDS ORDERED: PT OWN MED DRAWER 7, Y5N ONE (09:14)
[2021-04-13] MEDS ORDERED: DEXTROSE 5%-WATER 100 ML IVPB ONE (09:15)
[2021-04-13] MEDS: PANTOPRAZOLE SODIUM 40 MG VIAL IVPUSH SCH (09:18)
[2021-04-13] MEDS: LIDOCAINE 5% TOPICAL PATCH TP SCH (09:20)
[2021-04-13] MEDS: CEFTRIAXONE 2 GM in DEXTROSE 5%-WATER 100 ML IVPB SCH (10:44)
[2021-04-13] MEDS: MORPHINE SULFATE 2 MG/ML VIAL IVPUSH PRN (16:59)
[2021-04-13] MEDS: LIDOCAINE PATCH REMOVAL MC SCH (21:07)
[2021-04-14] MEDS ORDERED: ACETAMINOPHEN 1000 MG/100 ML VIAL (NON FORMULARY) IVPB PRN (08:21)
[2021-04-14] MEDS ORDERED: KETOROLAC TROMETHAMINE 30 MG/1 ML VIAL IVPUSH PRN (08:21)
[2021-04-14] MEDS: LIDOCAINE 5% TOPICAL PATCH TP SCH (11:24)
[2021-04-14] MEDS: PANTOPRAZOLE SODIUM 40 MG VIAL IVPUSH SCH (11:25)
[2021-04-14] MEDS: DEXTROSE 5%-NORMAL SALINE 1,000 ML IV SCH ×2 (12:18→16:06)
[2021-04-14] MEDS: LIDOCAINE PATCH REMOVAL MC SCH (21:18)
[2021-04-15] MEDS: DEXTROSE 5%-NORMAL SALINE 1,000 ML IV SCH (05:54)
[2021-04-15] MEDS: PANTOPRAZOLE SODIUM 40 MG VIAL IVPUSH SCH (09:11)
[2021-04-15] MEDS: LIDOCAINE 5% TOPICAL PATCH TP SCH (09:12)
[2021-04-15 10:43] VITALS: BP 143/85; PULSE 78; TEMP 98.1
== END 2021-04-15 10:44 | disposition home or self-care (01) | DRG 247 ==
LOC: JER 23:02 → JERBED 04-11 05:10 → J8W 04-11 10:48
PROVIDERS: ADMIT Family Medicine; ATTEND Family Medicine
PROC: 0D9670Z Drainage of Stomach with Drainage Device, Via Natural or Artificial Opening (ICD-10-PCS; principal; 2021-04-11)
DX: K56.609 Unspecified intestinal obstruction, unspecified as to partial versus complete obstruction (principal); M54.16 Radiculopathy, lumbar region; K21.9 Gastro-esophageal reflux disease without esophagitis; Z21 Asymptomatic human immunodeficiency virus [HIV] infection status
CPT/HCPCS: 36415; 71045-TC-FY; 74018-TC-FY; 74177-TC; 80048; 80053; 81003; 83605; 83690; 83735; 85025; 85027; 87040; 87045; 87046; 87086; 87186; 87205; 93005; 93010; 99285-25; C9803; J0131; Q9967; U0003; U0005

== ENCOUNTER 2021-08-10 13:18 | Emergency (ER) | payer OTHER ==
[2021-08-10 13:51] VITALS: BP 106/65; PULSE 90; TEMP 98.3; BMI 24.3
[2021-08-10] MEDS ORDERED: KETOROLAC TROMETHAMINE 60 MG/2 ML VIAL IM ONE (15:05)
[2021-08-10] MEDS ORDERED: KETOROLAC TROMETHAMINE 60 MG/2 ML VIAL ONE (15:23)
== END 2021-08-10 18:04 | disposition home or self-care (01) ==
LOC: JER 13:18
PROC: 3E0233Z Introduction of Anti-inflammatory into Muscle, Percutaneous Approach (ICD-10-PCS; principal; 2021-08-10)
DX: M79.662 Pain in left lower leg (principal); R20.2 Paresthesia of skin; M25.561 Pain in right knee
CPT/HCPCS: 73560-TC-RT-FY; 99284-25

== ENCOUNTER 2021-08-24 17:19 | Emergency (ER) | payer OTHER ==
[2021-08-24 18:04] VITALS: BP 106/68; PULSE 81; TEMP 98.3; BMI 24.3
[2021-08-24 21:18] LABS: BASO % 0.4 % (0-2.0); EOS % 5.9 % (0-4.5); HEMATOCRIT 33.2 % (32.4-45.2); HEMOGLOBIN 11.1 GM/dL (10.7-15.3); LYMPH % 32.3 % (8-40); MCHC 33.5 g/dl (32.0-36.0); MEAN CELL VOLUME 89.6 fl (80-96); MEAN PLT VOLUME 6.9 fl (7.5-11.1); MONO % 6.8 % (3.8-10.2); NEUT % 54.6 % (42.8-82.8); PLATELET COUNT 353 10^3/uL (134-434); RDW 16.2 % (11.6-15.6); WHITE BLOOD COUNT 8.8 K/mm3 (4.0-10.0)
[2021-08-24] MEDS ORDERED: KETOROLAC TROMETHAMINE 30 MG/1 ML VIAL IVPUSH ONE (21:19)
[2021-08-24] MEDS ORDERED: KETOROLAC TROMETHAMINE 30 MG/1 ML VIAL ONE (21:23)
[2021-08-24 21:35] LABS: CHLORIDE 110 mmol/L (98-107); SODIUM 143 mmol/L (136-145)
[2021-08-24 21:37] LABS: ALBUMIN 3.6 g/dl (3.4-5.0); ANION GAP 2 MMOL/L (8-16); BLOOD UREA NITROGEN 15.1 mg/dL (7-18); CALCIUM 9.8 mg/dL (8.5-10.1); CO2 32 mmol/L (21-32)
[2021-08-24 21:38] LABS: GLUCOSE,RANDOM 97 mg/dL (74-106)
[2021-08-24 21:40] LABS: SGPT/ALT 28 U/L (13-61)
[2021-08-24 21:41] LABS: SGOT/AST 20 U/L (15-37)
[2021-08-24 21:42] LABS: BILIRUBIN,TOTAL < 0.1 mg/dL (0.2-1)
[2021-08-24 21:43] LABS: ALK PHOS 117 U/L (45-117)
[2021-08-24 21:44] LABS: TOT PROT 7.5 g/dl (6.4-8.2)
[2021-08-24 22:06] LABS: ERYTHROCYTE SEDIMENTATION RATE 27 mm/hr (0-30)
[2021-08-24 23:13] LABS: BF WBC & OTHER NUCLEATED CELLS 128 /mm3
[2021-08-24 23:36] LABS: BODY FLUID MONOCYTE 52 %; BODYL FLD EOSINOPHIL 4 %
== END 2021-08-25 00:11 | disposition home or self-care (01) ==
LOC: JER 17:19
PROC: 3E0333Z Introduction of Anti-inflammatory into Peripheral Vein, Percutaneous Approach (ICD-10-PCS; principal; 2021-08-24)
DX: M25.561 Pain in right knee (principal)
CPT/HCPCS: 36415; 73562-TC-RT-FY; 80053; 84560; 85025; 85651; 86140; 87070; 87075; 87205; 89060; 99284-25

== ENCOUNTER 2021-11-12 12:55 | Emergency (ER) | payer OTHER ==
[2021-11-12 13:09] VITALS: BP 106/71; PULSE 100; TEMP 98.1; BMI 23.6
[2021-11-12] MEDS ORDERED: KETOROLAC TROMETHAMINE 30 MG/1 ML VIAL IM ONE (13:58)
[2021-11-12] MEDS ORDERED: KETOROLAC TROMETHAMINE 30 MG/1 ML VIAL ONE (14:03)
== END 2021-11-12 15:23 | disposition home or self-care (01) ==
LOC: JERFT 12:55
PROC: 3E0233Z Introduction of Anti-inflammatory into Muscle, Percutaneous Approach (ICD-10-PCS; principal; 2021-11-12)
DX: M25.561 Pain in right knee (principal)
CPT/HCPCS: 73562-TC-RT-FY; 99284-25

== ENCOUNTER 2022-03-26 07:34 | Day surgery (SDC) | payer OTHER ==
[2022-03-22 16:50] VITALS: BMI 22.9
[2022-03-26] MEDS ORDERED: BUPIVACAINE HCL/PF 0.25% (2.5MG/ML) 10 ML VIAL ONE (08:37)
[2022-03-26] MEDS ORDERED: ROPIVACAINE HCL 0.5% 30ML VIAL ONE (09:47)
[2022-03-26] MEDS ORDERED: ROCURONIUM BROMIDE 50 MG/5 ML SYRINGE ONE (09:49)
[2022-03-26] MEDS ORDERED: PROPOFOL 20 ML ONE ×3 (09:49)
[2022-03-26] MEDS ORDERED: SUCCINYLCHOLINE CHLORIDE 200 MG/10 ML SYRINGE ONE (09:49)
[2022-03-26] MEDS ORDERED: MIDAZOLAM HCL 2 MG/2 ML SINGLE DOSE VIAL ONE (09:50)
[2022-03-26] MEDS ORDERED: ALBUTEROL SO4 HFA INHALER IH ONE (09:51)
[2022-03-26] MEDS ORDERED: BUPIVACAINE HCL/PF 0.25% (2.5MG/ML) 10 ML VIAL IJ ONE (10:32)
[2022-03-26] MEDS ORDERED: oxyCODONE HCL 5 MG TABLET PO PRN ×2 (11:55)
[2022-03-26] MEDS ORDERED: ONDANSETRON 4 MG/2 ML VIAL IVPUSH PRN (11:55)
[2022-03-26] MEDS ORDERED: PROMETHAZINE HCL 25 MG/1 ML VIAL IVPUSH PRN (11:55)
[2022-03-26 13:33] VITALS: TEMP 97.9
[2022-03-26 13:41] VITALS: BP 121/65; PULSE 71
== END 2022-03-26 13:40 | disposition home or self-care (01) ==
LOC: FASU 07:34
PROVIDERS: ATTEND Orthopaedic Surgery
PROC: 0RCL4ZZ Extirpation of Matter from Right Elbow Joint, Percutaneous Endoscopic Approach (ICD-10-PCS; 2022-03-26)
PROC: 0RBL4ZZ Excision of Right Elbow Joint, Percutaneous Endoscopic Approach (ICD-10-PCS; principal; 2022-03-26 10:32)
DX: M77.11 Lateral epicondylitis, right elbow (principal); M94.221 Chondromalacia, right elbow; M65.9 Synovitis and tenosynovitis, unspecified
CPT/HCPCS: 88304-TC; 88311-TC; 94760

== ENCOUNTER 2022-07-07 01:23 | Emergency (ER) | payer OTHER ==
[2022-07-07 01:40] VITALS: BP 111/73; PULSE 81; RESP 18; TEMP 98.1; BMI 22.6
[2022-07-07] MEDS ORDERED: KETOROLAC TROMETHAMINE 30 MG/1 ML VIAL IM ONE (02:13)
[2022-07-07] MEDS ORDERED: KETOROLAC TROMETHAMINE 30 MG/1 ML VIAL ONE (02:25)
[2022-07-07 03:04] LABS: BASO % 1.3 % (0-2.0); EOS % 3.5 % (0-4.5); HEMATOCRIT 32.2 % (32.4-45.2); HEMOGLOBIN 10.9 GM/dL (10.7-15.3); LYMPH % 33.7 % (8-40); MCH 30.1 pg (25.7-33.7); MCHC 33.9 g/dl (32.0-36.0); MEAN CELL VOLUME 88.9 fl (80-96); MEAN PLT VOLUME 6.3 fl (7.5-11.1); MONO % 5.9 % (3.8-10.2); NEUT % 55.6 % (42.8-82.8); PLATELET COUNT 310 10^3/uL (134-434); RBC 3.62 M/mm3 (3.60-5.2); RDW 15.1 % (11.6-15.6); WHITE BLOOD COUNT 9.1 K/mm3 (4.0-10.0)
[2022-07-07] MEDS ORDERED: ACETAMINOPHEN 1000 MG/100 ML BAG IVPB ONE (03:16)
[2022-07-07 03:29] LABS: BLOOD UREA NITROGEN 12.6 mg/dL (7-18); CALCIUM 9.8 mg/dL (8.5-10.1)
[2022-07-07 03:30] LABS: ALBUMIN 3.4 g/dl (3.4-5.0)
[2022-07-07 03:34] LABS: BILIRUBIN,TOTAL 0.2 mg/dL (0.2-1); TOT PROT 6.9 g/dl (6.4-8.2)
[2022-07-07] MEDS ORDERED: ACETAMINOPHEN INJECTION 100 ML IVPB ONE (04:02)
== END 2022-07-07 06:07 | disposition home or self-care (01) ==
LOC: JER 01:23
PROC: 3E0333Z Introduction of Anti-inflammatory into Peripheral Vein, Percutaneous Approach (ICD-10-PCS; principal; 2022-07-07)
PROC: 3E0233Z Introduction of Anti-inflammatory into Muscle, Percutaneous Approach (ICD-10-PCS; 2022-07-07)
DX: K11.8 Other diseases of salivary glands (principal)
CPT/HCPCS: 36415; 70487-TC; 80053; 85025; 99285-25; Q9967

== ENCOUNTER 2022-07-20 18:58 | Emergency (ER) | payer OTHER ==
[2022-07-20 19:34] VITALS: BP 112/68; PULSE 78; RESP 18; TEMP 98.8; BMI 22.6
[2022-07-20] MEDS ORDERED: KETOROLAC TROMETHAMINE 30 MG/1 ML VIAL IVPUSH ONE (20:02)
[2022-07-20] MEDS ORDERED: KETOROLAC TROMETHAMINE 30 MG/1 ML VIAL IM ONE (20:07)
[2022-07-20] MEDS ORDERED: KETOROLAC TROMETHAMINE 30 MG/1 ML VIAL ONE (20:08)
== END 2022-07-20 22:39 | disposition home or self-care (01) ==
LOC: JER 18:58
PROC: 3E023GC Introduction of Other Therapeutic Substance into Muscle, Percutaneous Approach (ICD-10-PCS; principal; 2022-07-20)
DX: M25.561 Pain in right knee (principal)
CPT/HCPCS: 73562-TC-RT-FY; 99284-25

== ENCOUNTER 2022-08-06 08:34 | Day surgery (SDC) | payer OTHER ==
[2022-08-03 14:40] VITALS: BMI 22.2
[~2022-08-06 08:34] MED LIST: ONDANSETRON 4 MG/2 ML VIAL IVPUSH PRN
[2022-08-06] MEDS ORDERED: ACETAMINOPHEN 325 MG TABLET (FP) PO PRN (08:38)
[2022-08-06] MEDS ORDERED: IBUPROFEN 400 MG TABLET (FP) PO PRN (08:38)
[2022-08-06] MEDS ORDERED: LACTATED RINGERS SOLUTION 1,000 ML IV SCH (08:45)
[2022-08-06] MEDS ORDERED: BUPIVACAINE HCL/EPINEPHRINE/PF 30 ML VIAL IJ ONE (08:51)
[2022-08-06] MEDS ORDERED: BUPIVACAINE HCL/PF 0.25% (2.5MG/ML) 10 ML VIAL ONE (08:51)
[2022-08-06] MEDS ORDERED: oxyCODONE HCL 5 MG TABLET PO PRN (09:10)
[2022-08-06] MEDS ORDERED: PROPOFOL 20 ML ONE (09:12)
[2022-08-06] MEDS ORDERED: MIDAZOLAM HCL 2 MG/2 ML SINGLE DOSE VIAL ONE (09:12)
[2022-08-06] MEDS ORDERED: ONDANSETRON 4 MG/2 ML VIAL ONE (10:21)
[2022-08-06] MEDS ORDERED: ceFAZolin SODIUM 1 GM VIAL ONE ×2 (10:21)
[2022-08-06] MEDS ORDERED: DEXAMETHASONE SOD PHOSPHATE 4 MG/1 ML VIAL ONE (10:21)
[2022-08-06] MEDS ORDERED: KETOROLAC TROMETHAMINE 30 MG/1 ML VIAL ONE (10:21)
[2022-08-06] MEDS ORDERED: oxyCODONE HCL 5 MG TABLET PO ONE (12:00)
[2022-08-06] MEDS ORDERED: oxyCODONE HCL 5 MG TABLET ONE (12:03)
[2022-08-06 12:06] VITALS: RESP 18; TEMP 98
[2022-08-06 12:59] VITALS: BP 150/89; PULSE 61
== END 2022-08-06 13:30 | disposition home or self-care (01) ==
LOC: FASU 08:34
PROVIDERS: ATTEND Orthopaedic Surgery
PROC: 0SBC4ZZ Excision of Right Knee Joint, Percutaneous Endoscopic Approach (ICD-10-PCS; principal; 2022-08-06 10:35)
DX: M94.20 Chondromalacia, unspecified site (principal); M67.261 Synovial hypertrophy, not elsewhere classified, right lower leg
CPT/HCPCS: 94760

== ENCOUNTER 2022-09-03 19:35 | Emergency (ER) | payer OTHER ==
[2022-09-03] MEDS ORDERED: KETOROLAC TROMETHAMINE 15 MG/ML VIAL IVPUSH ONE (20:15)
[2022-09-03] MEDS ORDERED: ACETAMINOPHEN 1000 MG/100 ML BAG IVPB ONE (20:15)
[2022-09-03] MEDS ORDERED: LIDOCAINE 5% TOPICAL PATCH TP ONE (20:15)
[2022-09-03] MEDS ORDERED: HYDROmorphone HCL CARPU-JECT 2 MG/1 ML DISP.SYRIN IVPUSH ONE (20:22)
[2022-09-03] MEDS ORDERED: KETOROLAC TROMETHAMINE 15 MG/ML VIAL ONE (20:23)
[2022-09-03] MEDS ORDERED: ACETAMINOPHEN INJECTION 100 ML IVPB ONE (20:23)
[2022-09-03] MEDS ORDERED: LIDOCAINE 5% TOPICAL PATCH ONE (20:23)
[2022-09-03 21:00] LABS: BASO % 0.6 % (0-2.0); HEMATOCRIT 36.5 % (32.4-45.2); HEMOGLOBIN 11.9 GM/dL (10.7-15.3); LYMPH % 33.6 % (8-40); MCH 28.8 pg (25.7-33.7); MCHC 32.6 g/dl (32.0-36.0); MEAN CELL VOLUME 88.5 fl (80-96); MEAN PLT VOLUME 6.9 fl (7.5-11.1); MONO % 5.8 % (3.8-10.2); PLATELET COUNT 389 10^3/uL (134-434); RBC 4.13 M/mm3 (3.60-5.2); RDW 16.1 % (11.6-15.6); WHITE BLOOD COUNT 9.2 K/mm3 (4.0-10.0)
[2022-09-03] MEDS ORDERED: HYDROmorphone HCL CARPU-JECT 2 MG/1 ML DISP.SYRIN IM ONE (21:00)
[2022-09-03 21:20] LABS: CALCIUM 9.6 mg/dL (8.5-10.1)
[2022-09-03 21:21] LABS: ALBUMIN 3.8 g/dl (3.4-5.0); BLOOD UREA NITROGEN 12.9 mg/dL (7-18)
[2022-09-03 21:25] LABS: TOT PROT 7.4 g/dl (6.4-8.2)
[2022-09-03 21:26] LABS: BILIRUBIN,TOTAL 0.2 mg/dL (0.2-1)
[2022-09-03] MEDS ORDERED: HYDROmorphone HCl 2 MG/ML VIAL ONE (21:46)
[2022-09-03 21:52] VITALS: BMI 22.6
[2022-09-03] MEDS ORDERED: LIDOCAINE PATCH REMOVAL MC SCH (22:00)
[2022-09-04 02:32] VITALS: BP 118/69; PULSE 71; RESP 19; TEMP 98
[2022-09-04] MEDS ORDERED: ACETAMINOPHEN 500 MG TABLET (FP) PO ONE (04:18)
[2022-09-04] MEDS ORDERED: ACETAMINOPHEN 325 MG TABLET (FP) ONE (04:27)
== END 2022-09-04 04:48 | disposition home or self-care (01) ==
LOC: JER 19:35
PROC: 3E033GC Introduction of Other Therapeutic Substance into Peripheral Vein, Percutaneous Approach (ICD-10-PCS; principal; 2022-09-03)
PROC: 3E023GC Introduction of Other Therapeutic Substance into Muscle, Percutaneous Approach (ICD-10-PCS; 2022-09-03)
DX: R07.89 Other chest pain (principal)
CPT/HCPCS: 36415; 71046-TC-FY; 71275-TC; 80053; 82550; 82553; 83605; 84484; 85025; 85379; 93005; 93010; 99285-25; Q9967

== ENCOUNTER 2023-05-21 09:52 | Emergency (ER) | payer OTHER ==
[2023-05-21 10:01] VITALS: BP 121/71; PULSE 61; RESP 18; BMI 19.0
[2023-05-21] MEDS ORDERED: KETOROLAC TROMETHAMINE 30 MG/1 ML VIAL IM ONE (10:17)
[2023-05-21] MEDS ORDERED: LIDOCAINE 5% TOPICAL PATCH TP ONE (10:26)
[2023-05-21] MEDS ORDERED: LIDOCAINE PATCH REMOVAL MC SCH (22:00)
== END 2023-05-21 10:36 | disposition home or self-care (01) ==
LOC: JERFT 09:52 → JER 09:52 → JERFT 10:36
PROC: 3E0233Z Introduction of Anti-inflammatory into Muscle, Percutaneous Approach (ICD-10-PCS; principal; 2023-05-21)
DX: M25.512 Pain in left shoulder (principal)
CPT/HCPCS: 99284-25

== ENCOUNTER 2023-08-02 05:06 | Day surgery (SDC) | payer OTHER ==
[2023-07-29 13:49] VITALS: BMI 22.9
[~2023-08-02 05:06] MED LIST changes: +DEXAMETHASONE SOD PHOSPHATE 10 MG/1 ML VIAL IM ONE; +IOHEXOL 180 MG/1 ML ML IJ ONE; +LIDOCAINE HCL 1% PRESERVATIVE FREE - 30ML VIAL IJ ONE; -ONDANSETRON 4 MG/2 ML VIAL IVPUSH PRN
[2023-08-02] MEDS ORDERED: LIDOCAINE HCL/PF 1% SDV 5ML VIAL ONE (07:39)
[2023-08-02] MEDS ORDERED: DEXAMETHASONE SOD PHOSPHATE 10 MG/1 ML VIAL ONE (07:39)
[2023-08-02] MEDS ORDERED: LIDOCAINE HCL 1% PRESERVATIVE FREE - 30ML VIAL IJ ONE (10:58)
[2023-08-02] MEDS ORDERED: IOHEXOL 180 MG/1 ML ML IJ ONE (11:00)
[2023-08-02] MEDS ORDERED: DEXAMETHASONE SOD PHOSPHATE 10 MG/1 ML VIAL IM ONE (11:03)
[2023-08-02 11:28] VITALS: RESP 18
[2023-08-02 12:32] VITALS: BP 123/73; PULSE 62; TEMP 98
[2023-08-02] MEDS ORDERED: ACETAMINOPHEN 500 MG TABLET (FP) PO PRN (15:24)
== END 2023-08-02 11:45 | disposition home or self-care (01) ==
LOC: JASU-SURG 05:06
PROVIDERS: ATTEND Pain Medicine Pain Medicine
PROC: 3E0R3BZ Introduction of Anesthetic Agent into Spinal Canal, Percutaneous Approach (ICD-10-PCS; 2023-08-02)
PROC: 3E0R33Z Introduction of Anti-inflammatory into Spinal Canal, Percutaneous Approach (ICD-10-PCS; principal; 2023-08-02 10:45)
DX: M54.12 Radiculopathy, cervical region (principal)
CPT/HCPCS: 76000-TC-FY; J1100

== ENCOUNTER 2023-10-19 11:15 | Emergency (ER) | payer OTHER ==
[2023-10-19 12:06] VITALS: RESP 13; BMI 22.9
[2023-10-19] MEDS ORDERED: SODIUM CHLORIDE 1,000 ML IV SCH (13:00)
[2023-10-19] MEDS ORDERED: SODIUM CHLORIDE 1,000 ML IV STA (13:41)
[2023-10-19 13:57] LABS: BASO % 1.3 % (0-2.0); EOS % 5.9 % (0-4.5); HEMATOCRIT 33.2 % (32.4-45.2); HEMOGLOBIN 10.9 GM/dL (10.7-15.3); LYMPH % 24.9 % (8-40); MCH 28.4 pg (25.7-33.7); MCHC 32.8 g/dl (32.0-36.0); MEAN CELL VOLUME 86.5 fl (80-96); MEAN PLT VOLUME 6.5 fl (7.5-11.1); MONO % 6.1 % (3.8-10.2); NEUT % 61.8 % (42.8-82.8); PLATELET COUNT 375 10^3/uL (134-434); RBC 3.84 M/mm3 (3.60-5.2); RDW 15.2 % (11.6-15.6); WHITE BLOOD COUNT 10.8 K/mm3 (4.0-10.0)
[2023-10-19 14:14] LABS: CHLORIDE 111 mmol/L (98-107); SODIUM 139 mmol/L (136-145)
[2023-10-19 14:16] LABS: CALCIUM 8.9 mg/dL (8.5-10.1); CO2 25 mmol/L (21-32); GLUCOSE,RANDOM 83 mg/dL (74-106)
[2023-10-19 14:19] LABS: CREATININE 0.9 mg/dL (0.55-1.3); SGOT/AST 41 U/L (15-37)
[2023-10-19 14:20] LABS: SGPT/ALT 25 U/L (13-61)
[2023-10-19 14:21] LABS: BILIRUBIN,TOTAL 0.4 mg/dL (0.2-1); TOT PROT 7.4 g/dl (6.4-8.2)
[2023-10-19 14:22] LABS: ALK PHOS 84 U/L (45-117)
[2023-10-19 14:25] LABS: ALBUMIN 3.4 g/dl (3.4-5.0); ANION GAP 3 mmol/L (4-13); BLOOD UREA NITROGEN 11.8 mg/dL (7-18); POTASSIUM 6.6 mmol/L (3.5-5.1)
[2023-10-19 15:11] VITALS: BP 109/60; PULSE 68; TEMP 98.6
== END 2023-10-19 15:17 | disposition home or self-care (01) ==
LOC: JER 11:15
PROC: 3E0337Z Introduction of Electrolytic and Water Balance Substance into Peripheral Vein, Percutaneous Approach (ICD-10-PCS; principal; 2023-10-19)
DX: R11.2 Nausea with vomiting, unspecified (principal); J02.9 Acute pharyngitis, unspecified; R05.9 Cough, unspecified; R09.3 Abnormal sputum; R10.9 Unspecified abdominal pain; R06.02 Shortness of breath; J06.9 Acute upper respiratory infection, unspecified; R53.1 Weakness; R53.81 Other malaise; Z20.822 Contact with and (suspected) exposure to COVID-19
CPT/HCPCS: 0241U-QW; 36415; 71045-TC-FY; 80053; 84132; 85025; 93005; 93010; 99284-25

== ENCOUNTER 2024-01-16 15:25 | Emergency (ER) | payer OTHER ==
[2024-01-16 15:29] VITALS: BP 101/67; PULSE 81; RESP 18; TEMP 97.9; BMI 22.9
[2024-01-16] MEDS ORDERED: LIDOCAINE 4% PATCH TP ONE (17:33)
[2024-01-16] MEDS ORDERED: KETOROLAC TROMETHAMINE 30 MG/1 ML VIAL ONE (17:33)
[2024-01-16] MEDS ORDERED: METHOCARBAMOL 500 MG TABLET ONE (17:33)
[2024-01-16] MEDS ORDERED: ACETAMINOPHEN 500 MG TABLET (FP) ONE (17:34)
[2024-01-16] MEDS: KETOROLAC TROMETHAMINE 30 MG/1 ML VIAL IM ONE (17:49)
[2024-01-16] MEDS: LIDOCAINE 4% PATCH TP ONE (17:50)
[2024-01-16] MEDS: ACETAMINOPHEN 500 MG TABLET (FP) PO ONE (17:50)
[2024-01-16] MEDS: METHOCARBAMOL 500 MG TABLET PO ONE (17:51)
[2024-01-16] MEDS ORDERED: LIDOCAINE PATCH REMOVAL MC SCH (22:00)
== END 2024-01-16 19:26 | disposition home or self-care (01) ==
LOC: JER 15:25
PROC: 3E0233Z Introduction of Anti-inflammatory into Muscle, Percutaneous Approach (ICD-10-PCS; principal; 2024-01-16)
DX: M25.551 Pain in right hip (principal); M25.552 Pain in left hip; R29.898 Other symptoms and signs involving the musculoskeletal system
CPT/HCPCS: 99284-25

== ENCOUNTER 2024-01-31 04:41 | Day surgery (SDC) | payer OTHER ==
[2024-01-30 08:57] VITALS: BMI 22.9
[2024-01-31] MEDS: DEXAMETHASONE SOD PHOSPHATE 10 MG/1 ML VIAL IVPUSH ONE
[2024-01-31] MEDS ORDERED: TRIAMCINOLONE ACET 40MG/1ML VIAL ONE (07:19)
[2024-01-31] MEDS ORDERED: BUPIVACAINE HCL/PF 0.5% (5MG/ML) 10 ML VIAL ONE (07:19)
[2024-01-31] MEDS ORDERED: LIDOCAINE HCL/PF 1% SDV 5ML VIAL ONE (07:19)
[2024-01-31] MEDS: LIDOCAINE 1% P/F 10 MG/ML VIAL INF ONE ×2 (14:11)
[2024-01-31] MEDS: TRIAMCINOLONE ACET 40MG/1ML VIAL IM ONE (14:11)
[2024-01-31] MEDS: BUPIVACAINE HCL/PF 0.5% (5MG/ML) 10 ML VIAL IJ ONE ×2 (14:11)
[2024-01-31] MEDS: IOHEXOL 180 MG/1 ML ML IJ ONE ×2 (14:11)
[2024-01-31] MEDS ORDERED: ACETAMINOPHEN 500 MG TABLET (FP) PO PRN (15:24)
[2024-01-31 16:11] VITALS: BP 100/66; PULSE 75; RESP 20; TEMP 97.3
== END 2024-01-31 14:45 | disposition home or self-care (01) ==
LOC: JASU-SURG 04:41
PROVIDERS: ATTEND Pain Medicine Pain Medicine
PROC: 3E0U3BZ Introduction of Anesthetic Agent into Joints, Percutaneous Approach (ICD-10-PCS; 2024-01-31)
PROC: 3E0U33Z Introduction of Anti-inflammatory into Joints, Percutaneous Approach (ICD-10-PCS; principal; 2024-01-31 13:30)
DX: M16.11 Unilateral primary osteoarthritis, right hip (principal)
CPT/HCPCS: 76000-TC-FY; J1100

== ENCOUNTER 2024-02-28 04:36 | Day surgery (SDC) | payer OTHER ==
[2024-02-23 11:28] VITALS: BMI 22.8
[2024-02-28] MEDS ORDERED: LIDOCAINE HCL/PF 1% SDV 5ML VIAL ONE (07:40)
[2024-02-28] MEDS ORDERED: DEXAMETHASONE SOD PHOSPHATE 10 MG/1 ML VIAL ONE (07:40)
[2024-02-28 12:40] VITALS: RESP 18
[2024-02-28] MEDS: LIDOCAINE HCL 1%, 10 MG/ML (20ML VIAL) INF ONE ×2 (13:28→13:36)
[2024-02-28] MEDS: BUPIVACAINE HCL/PF 0.5% (5 MG/ML) 30 ML VIAL IJ ONE ×2 (13:30→13:43)
[2024-02-28] MEDS: IOHEXOL 180 MG/1 ML ML IJ ONE ×2 (13:34→13:37)
[2024-02-28] MEDS: DEXAMETHASONE SOD PHOSPHATE 10 MG/1 ML VIAL IVPUSH ONE ×3 (13:34→13:42)
[2024-02-28 15:13] VITALS: BP 119/78; PULSE 69; TEMP 97.7
== END 2024-02-28 14:20 | disposition home or self-care (01) ==
LOC: JASU-SURG 04:36
PROVIDERS: ATTEND Pain Medicine Pain Medicine
PROC: 3E0R3BZ Introduction of Anesthetic Agent into Spinal Canal, Percutaneous Approach (ICD-10-PCS; 2024-02-28)
PROC: 3E0R33Z Introduction of Anti-inflammatory into Spinal Canal, Percutaneous Approach (ICD-10-PCS; principal; 2024-02-28 13:15)
DX: M54.16 Radiculopathy, lumbar region (principal)
CPT/HCPCS: 76000-TC-FY; J1100

== ENCOUNTER 2024-04-03 12:06 | Inpatient (IN) | payer OTHER ==
[2024-04-03 12:14] VITALS: BMI 23.2
[2024-04-03] MEDS ORDERED: ACETAMINOPHEN INJECTION 100 ML IVPB ONE (13:53)
[2024-04-03 13:54] LABS: BASO % 0.9 % (0-2.0); EOS % 1.7 % (0-4.5); HEMATOCRIT 34.4 % (32.4-45.2); HEMOGLOBIN 11.5 GM/dL (10.7-15.3); LYMPH % 28.4 % (8-40); MCH 28.8 pg (25.7-33.7); MCHC 33.4 g/dl (32.0-36.0); MEAN CELL VOLUME 86.1 fl (80-96); MEAN PLT VOLUME 6.3 fl (7.5-11.1); MONO % 5.6 % (3.8-10.2); NEUT % 63.4 % (42.8-82.8); PLATELET COUNT 395 10^3/uL (134-434); WHITE BLOOD COUNT 9.5 K/mm3 (4.0-10.0)
[2024-04-03] MEDS: SODIUM CHLORIDE 1,000 ML IV STA (13:56)
[2024-04-03] MEDS: ACETAMINOPHEN 1000 MG/100 ML BAG IVPB ONE (13:56)
[2024-04-03 14:00] LABS: INR 1.04 (0.83-1.09); PROTHROMBIN TIME (PATIENT) 11.9 SEC (9.7-13.0)
[2024-04-03 14:03] LABS: ACTIVATED PTT 31.2 SECONDS (25.2-36.5)
[2024-04-03 14:16] LABS: POTASSIUM 4.4 mmol/L (3.5-5.1)
[2024-04-03 14:18] LABS: BLOOD UREA NITROGEN 13.6 mg/dL (7-18); CALCIUM 9.7 mg/dL (8.5-10.1)
[2024-04-03 14:21] LABS: CREATININE 0.8 mg/dL (0.55-1.3)
[2024-04-03 14:23] LABS: BILIRUBIN,TOTAL 0.3 mg/dL (0.2-1); TOT PROT 7.7 g/dl (6.4-8.2)
[2024-04-03] MEDS: MELATONIN 5 MG TABLETS PO PRN (21:53)
[2024-04-03] MEDS: GABAPENTIN 300 MG CAPSULE PO SCH (21:53)
[2024-04-03] MEDS: ACETAMINOPHEN 1000 MG/100 ML BAG IVPB PRN (22:49)
[2024-04-03] MEDS: LIDOCAINE PATCH REMOVAL MC SCH (22:54)
[2024-04-03] MEDS: LIDOCAINE 5% TOPICAL PATCH TP SCH (22:54)
[2024-04-03 23:35] VITALS: RESP 18
[2024-04-04 09:04] LABS: EOS % 3.5 % (0-4.5); HEMATOCRIT 33.3 % (32.4-45.2); HEMOGLOBIN 10.8 GM/dL (10.7-15.3); LYMPH % 37.2 % (8-40); MCHC 32.6 g/dl (32.0-36.0); MEAN CELL VOLUME 86.1 fl (80-96); MEAN PLT VOLUME 6.5 fl (7.5-11.1); MONO % 7.1 % (3.8-10.2); NEUT % 51.2 % (42.8-82.8); PLATELET COUNT 366 10^3/uL (134-434); RBC 3.87 M/mm3 (3.60-5.2); WHITE BLOOD COUNT 6.3 K/mm3 (4.0-10.0)
[2024-04-04 09:06] LABS: POTASSIUM 4.1 mmol/L (3.5-5.1)
[2024-04-04 09:14] LABS: BLOOD UREA NITROGEN 11.2 mg/dL (7-18); CALCIUM 9.4 mg/dL (8.5-10.1)
[2024-04-04 09:15] LABS: ALBUMIN 3.4 g/dl (3.4-5.0)
[2024-04-04 09:18] LABS: CREATININE 0.8 mg/dL (0.55-1.3)
[2024-04-04 09:19] LABS: BILIRUBIN,TOTAL 0.5 mg/dL (0.2-1); TOT PROT 6.6 g/dl (6.4-8.2)
[2024-04-04] MEDS: PANTOPRAZOLE 40 MG TABLET PO SCH (11:27)
[2024-04-04] MEDS: BICTEGRAV/EMTRICIT/TENOFOV (BIKTARVY) 50-200-25 MG TABLET PO SCH (11:27)
[2024-04-04] MEDS: GABAPENTIN 300 MG CAPSULE PO SCH (15:42)
[2024-04-04 18:26] VITALS: BP 110/62; PULSE 90; TEMP 97.7
[2024-04-04] MEDS ORDERED: MIRTAZAPINE 30 MG TABLET PO SCH (22:00)
[2024-04-04] MEDS ORDERED: ATORVASTATIN CA 10 MG TABLET (FP) PO SCH (22:00)
== END 2024-04-04 21:27 | disposition short-term general hospital (02) | DRG 347 ==
LOC: JER 12:06 → JERFT 12:06 → JERBED 14:00 → J5S 17:32
PROVIDERS: ADMIT Family Medicine; ATTEND Family Medicine
DX: M43.16 Spondylolisthesis, lumbar region (principal); E78.5 Hyperlipidemia, unspecified; F12.90 Cannabis use, unspecified, uncomplicated; G89.29 Other chronic pain; K21.9 Gastro-esophageal reflux disease without esophagitis; M25.519 Pain in unspecified shoulder; M48.061 Spinal stenosis, lumbar region without neurogenic claudication; M54.50 Low back pain, unspecified; M79.605 Pain in left leg; R26.2 Difficulty in walking, not elsewhere classified; R51.9 Headache, unspecified
CPT/HCPCS: 36415; 72100-TC-FY; 80053; 84443; 85025; 85610; 85730; 86850; 86900; 86901; 93005; 93010; 93971-TC; 99285-25; J0131

== ENCOUNTER 2024-12-06 07:16 | Day surgery (SDC) | payer OTHER ==
[2024-12-04 11:25] VITALS: BMI 22.9
[2024-12-06] MEDS ORDERED: ACETAMINOPHEN 500 MG TABLET (FP) PO PRN (09:36)
[2024-12-06] MEDS ORDERED: LIDOCAINE HCL/PF 1% SDV 5ML VIAL ONE (12:45)
[2024-12-06 13:19] VITALS: BP 96/60; PULSE 58; RESP 18; TEMP 97.4
== END 2024-12-06 13:25 | disposition home or self-care (01) ==
LOC: JASU-SURG 07:16
PROVIDERS: ATTEND Pain Medicine Pain Medicine
PROC: 3E0U3BZ Introduction of Anesthetic Agent into Joints, Percutaneous Approach (ICD-10-PCS; 2024-12-06)
PROC: 3E0U33Z Introduction of Anti-inflammatory into Joints, Percutaneous Approach (ICD-10-PCS; principal; 2024-12-06 12:58)
DX: M16.11 Unilateral primary osteoarthritis, right hip (principal)
CPT/HCPCS: 76000-TC-FY

== ENCOUNTER 2024-12-28 05:18 | Day surgery (SDC) | payer OTHER ==
[2024-12-24 16:30] VITALS: BMI 22.9
[2024-12-28] MEDS ORDERED: MIDAZOLAM HCL 2 MG/2 ML SINGLE DOSE VIAL ONE (11:23)
[2024-12-28] MEDS ORDERED: DEXMEDETOMIDINE HCL 200 MCG/2 ML IVPB ONE (11:30)
[2024-12-28] MEDS ORDERED: ceFAZolin SODIUM 1 GM VIAL ONE (11:35)
[2024-12-28] MEDS: ceFAZolin SODIUM 1 GM VIAL IVPB ONE ×2 (11:37)
[2024-12-28] MEDS: LIDOCAINE HCL 1% PRESERVATIVE FREE - 30ML VIAL IJ ONE (11:45)
[2024-12-28] MEDS: LIDOCAINE HCL/PF 2% SDV 5ML VIAL INF ONE ×2 (11:58)
[2024-12-28 13:23] VITALS: RESP 20
[2024-12-28 16:03] VITALS: BP 107/77; PULSE 74; TEMP 97.3
== END 2024-12-28 13:45 | disposition home or self-care (01) ==
LOC: JASU-SURG 05:18
PROVIDERS: ATTEND Pain Medicine Pain Medicine
PROC: 00HU3MZ Insertion of Neurostimulator Lead into Spinal Canal, Percutaneous Approach (ICD-10-PCS; principal; 2024-12-28 10:15)
DX: M96.1 Postlaminectomy syndrome, not elsewhere classified (principal)
CPT/HCPCS: 63650; C1778; 76000-TC-FY; C1897

== ENCOUNTER 2025-01-17 06:11 | Day surgery (SDC) | payer OTHER ==
[2025-01-15 06:46] VITALS: BMI 22.9
[2025-01-17] MEDS ORDERED: LIDOCAINE HCL/PF 1% SDV 5ML VIAL ONE (07:16)
[2025-01-17] MEDS ORDERED: LIDOCAINE HCL/PF 2% SDV 5ML VIAL ONE (07:16)
[2025-01-17] MEDS ORDERED: DEXMEDETOMIDINE HCL 200 MCG/2 ML IVPB ONE (08:05)
[2025-01-17] MEDS ORDERED: MIDAZOLAM HCL 2 MG/2 ML SINGLE DOSE VIAL ONE ×2 (08:07→09:52)
[2025-01-17] MEDS: ceFAZolin 2 GRAM PREMIX BAG IVPB ONE (08:12)
[2025-01-17] MEDS: LIDOCAINE HCL 1% PRESERVATIVE FREE - 30ML VIAL NR ONE ×3 (08:38)
[2025-01-17] MEDS: LIDOCAINE HCL/PF 2% SDV 5ML VIAL INF ONE ×3 (08:38)
[2025-01-17] MEDS ORDERED: ONDANSETRON 4 MG/2 ML VIAL IVPUSH PRN (10:05)
[2025-01-17] MEDS ORDERED: LACTATED RINGERS SOLUTION 1,000 ML IV SCH (10:15)
[2025-01-17] MEDS ORDERED: VANCOMYCIN 1,000 MG VIAL (RESTRICTED TO ID ONLY) ONE (11:23)
[2025-01-17] MEDS ORDERED: KETAMINE HCL 200 MG/20 ML VIAL ONE (11:25)
[2025-01-17] MEDS: HYDROGEN PEROXIDE 473 ML PO ONE ×2 (11:30)
[2025-01-17] MEDS: VANCOMYCIN 1,000 MG VIAL (RESTRICTED TO ID ONLY) IVPB ONE (11:30)
[2025-01-17] MEDS: GENTAMICIN SO4 80 MG/2 ML VIAL IVPB ONE (11:30)
[2025-01-17] MEDS ORDERED: GENTAMICIN SO4 80 MG/2 ML VIAL ONE (11:31)
[2025-01-17] MEDS ORDERED: ePHEDrine SULFATE 50 MG/1 ML AMPULE ONE (11:54)
[2025-01-17] MEDS ORDERED: ceFAZolin SODIUM 1 GM VIAL ONE ×2 (12:16)
[2025-01-17] MEDS: BACITRACIN ZINC 15 GM TUBE TOPICAL OINTMENT TP ONE (12:21)
[2025-01-17] MEDS ORDERED: BACITRACIN ZINC 15 GM TUBE TOPICAL OINTMENT ONE (12:23)
[2025-01-17 14:33] VITALS: RESP 16
[2025-01-17] MEDS: ACETAMINOPHEN 500 MG TABLET (FP) PO PRN (14:44)
[2025-01-17] MEDS ORDERED: ACETAMINOPHEN 500 MG TABLET (FP) ONE (14:46)
[2025-01-17 15:54] VITALS: BP 88/48; PULSE 58; TEMP 97
== END 2025-01-17 16:00 | disposition home or self-care (01) ==
LOC: JASU-SURG 06:11
PROVIDERS: ATTEND Pain Medicine Pain Medicine
PROC: 00HU3MZ Insertion of Neurostimulator Lead into Spinal Canal, Percutaneous Approach (ICD-10-PCS; 2025-01-17)
PROC: 0JH70DZ Insertion of Multiple Array Stimulator Generator into Back Subcutaneous Tissue and Fascia, Open Approach (ICD-10-PCS; principal; 2025-01-17 08:00)
DX: M96.1 Postlaminectomy syndrome, not elsewhere classified (principal); G89.4 Chronic pain syndrome
CPT/HCPCS: 63650; 63685; C1767; C1778; 76000-TC-FY; 94760